=== PATIENT | male | born 1965 | race African-American/Black ===

== ENCOUNTER 2020-05-07 06:49 | Outpatient (REF) | payer OTHER, SELFPAY | END 2020-05-07 06:50 | disposition home or self-care (01) | LOC: HO.LAB 06:49 | PROVIDERS: Visit Provider Internal Medicine | DX: Z20.828 Contact with and (suspected) exposure to other viral communicable diseases (principal) | CPT/HCPCS: 87635 ==

== ENCOUNTER 2020-06-09 07:09 | Outpatient (REF) | payer OTHER, SELFPAY | END 2020-06-09 07:10 | disposition home or self-care (01) | LOC: HO.LAB 07:09 | PROVIDERS: Visit Provider Internal Medicine | DX: Z20.828 Contact with and (suspected) exposure to other viral communicable diseases (principal) | CPT/HCPCS: C9803; U0003 ==

== ENCOUNTER → 2021-01-10 08:19 | Outpatient (BNVA) | payer OTHER, SELFPAY | PROVIDERS: Visit Provider Internal Medicine | DX: S16.1XXA Strain of muscle, fascia and tendon at neck level, initial encounter (principal); W57.XXXA Bitten or stung by nonvenomous insect and other nonvenomous arthropods, initial encounter | CPT/HCPCS: 99202 ==

== ENCOUNTER → 2021-01-13 08:22 | Outpatient (BNVA) | payer OTHER, SELFPAY | PROVIDERS: Visit Provider Internal Medicine | DX: S16.1XXA Strain of muscle, fascia and tendon at neck level, initial encounter (principal); X58.XXXA Exposure to other specified factors, initial encounter; M47.812 Spondylosis without myelopathy or radiculopathy, cervical region | CPT/HCPCS: 72050; 99214 ==

== ENCOUNTER → 2021-01-27 07:56 | Outpatient (BNVA) | payer OTHER, SELFPAY | PROVIDERS: Visit Provider Internal Medicine | DX: S16.1XXD Strain of muscle, fascia and tendon at neck level, subsequent encounter (principal); X58.XXXD Exposure to other specified factors, subsequent encounter | CPT/HCPCS: 99213 ==

== ENCOUNTER → 2021-02-03 08:02 | Outpatient (BNVA) | payer OTHER, SELFPAY | PROVIDERS: Visit Provider Internal Medicine | DX: S16.1XXD Strain of muscle, fascia and tendon at neck level, subsequent encounter (principal); X58.XXXD Exposure to other specified factors, subsequent encounter; R20.0 Anesthesia of skin | CPT/HCPCS: 99213 ==

== ENCOUNTER 2021-02-16 08:30 | Outpatient (REF) | payer OTHER, SELFPAY ==
--- NOTE | ~2021-02-16 | XR_ITS ---
EXAMINATION: XR ORBITS CLINICAL INFORMATION: Rule out foreign body. History of metal to the orbits. COMPARISON: None TECHNIQUE: 3 view orbital series. FINDINGS: There is no fracture. No bone, joint or soft tissue abnormality is demonstrated. No radiopaque foreign body. XR/XR orbit min 4V IMPRESSION: No radiopaque foreign body identified about the orbits.
== END 2021-02-16 08:31 | disposition home or self-care (01) ==
LOC: HO.XRAY 08:30
PROVIDERS: Visit Provider Otolaryngology
DX: Z87.821 Personal history of retained foreign body fully removed (principal)
CPT/HCPCS: 70200

== ENCOUNTER 2021-02-18 07:00 | Outpatient (RCR) | payer OTHER, SELFPAY ==
--- NOTE | 2021-01-21 11:23 | MHC.PT.EP ---
[facility] [place] Office [place] Office [place] Office [address] Lloyd Gurrola [address] [phone] F: [phone] F: [phone] F: [phone] F: [phone] Physical Therapy Plan of Care Date of Evaluation: Date of Surgery: N/A Diagnosis: Cervical Strain Assessment: Pt is a 55 yo M who presents to PT s/p injuring the L side of his neck at work. He presents with current impairments in pain, ROM, strength, soft tissue restrictions, joint mobility, and headaches. His signs and symptoms may be consistent with strain of cervical musculature and cervicogenic headaches. He is limited functionally by looking up or down for prolonged periods, sleeping, rotation during driving, and ADLs. He is an excellent candidate for skilled PT services to address current impairments and facilitate return to pain-free PLOF. Frequency and Duration: The patient will be seen 3x/week, 3 weeks Short Term Goals: Pt will be I with HEP to promote self management of symptoms. 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 Treatment Plan: Modalities to reduce pain, spasms and effusion. Manual therapy to restore motion and function. Therapeutic exercise to improve strength and flexibility. Neuromuscular re-education for posture and balance. Therapeutic activities to return to functional activities of daily living. Electronically signed by: Page Worley, PT, DPT Please sign and return to therapist. Thank you for your referral.
--- NOTE | 2021-02-21 14:27 | MHC.PT.DC ---
[facility] [place] Office [place] Office [place] Office [address] Lloyd Gurrola [address] [phone] F: [phone] F: [phone] F: [phone] F: [phone] Physical Therapy Discharge Report Diagnosis: Cervical Strain Date of Surgery: N/A Date of Evaluation: 01/21/21 Date of Discharge: 02/21/21 Treatments to Date: 9 Cancellations to Date: 0 No Shows to Date: 0 Discharge Status: Recommend MD Follow-up Discharge Summary: Pt is being D/C from skilled PT services. He has had minimal improvements in symptoms throughout his course of PT. On 02/18/21 he reports he had an MRI. He is recommended to follow-up with his provider s/p MRI. Electronically signed by: Page Worley PT, DPT Please sign and return to therapist. Thank you for your referral.
== END 2021-02-21 14:29 | disposition home or self-care (01) ==
LOC: HO.PT 07:00
PROVIDERS: Visit Provider Internal Medicine
DX: S16.1XXD Strain of muscle, fascia and tendon at neck level, subsequent encounter (principal)
CPT/HCPCS: 97110; 97140; 97161

== ENCOUNTER 2021-02-18 08:08 | Outpatient (REF) | payer OTHER, SELFPAY ==
--- NOTE | ~2021-02-18 | MR_ITS ---
EXAMINATION: MR CERVICAL SPINE WITHOUT CONTRAST CLINICAL INFORMATION: Fall, neck pain, side numbness. COMPARISON: Plain films of the cervical spine 01/13/2021. TECHNIQUE: MRI of the cervical spine was obtained using routine sequences without contrast. FINDINGS: VERTEBRAL BODIES AND PARASPINAL SOFT TISSUES: There is mild reversal of the cervical lordosis. There is narrowing of intervertebral disc height at C5-C6 anteriorly, there is multilevel loss of intervertebral disc signal. There is invagination of disc into the adjacent endplates at C5-C6, and there are degenerative endplate contour changes with edematous endplate signal centrally and toward the left this level. There are no acute compression fractures. Overall, marrow signal is homogenous. The paravertebral structures and visualized upper lung manrique are unremarkable. CERVICOMEDULLARY JUNCTION AND VISUALIZED POSTERIOR FOSSA: The craniocervical and posterior fossa structures are normal. Accounting for artifact, spinal cord signal appears normal; there is minimal prominence of the central canal of the spinal cord with maximum caliber of 1 mm at the level of C3-C4. SPINAL LEVELS: C2-C3: There is mild left facet arthropathy. There is a small posterior disc protrusion but there is no spinal cord compression or central stenosis. There are uncovertebral osteophytes and there is mild left foraminal narrowing. C3-C4: There is mild bilateral facet arthropathy. There is a small soft disc protrusion posteriorly in the midline which distorts the ventral thecal sac but there is no spinal cord compression or central stenosis. There are uncovertebral osteophytes. There is mild left foraminal narrowing. C4-C5: The facet joints appear normal. There is a small broad-based posterior soft disc protrusion which effaces CSF ventral to the spinal cord. There is no spinal cord compression or central stenosis. The neural foramina are patent bilaterally. C5-C6: The facet joints appear normal. There is a broad-based posterior soft disc protrusion which is slightly more prominent to the left of midline with distortion of the ventral thecal sac. There is no spinal cord compression or central stenosis. There are small left-sided uncovertebral osteophytes and there is mild left foraminal narrowing. C6-C7: The facet joints appear normal. There is a broad-based posterior soft disc protrusion which is most prominent to the right of midline, without spinal cord compression or central stenosis. The neural foramina are patent bilaterally. C7-T1: The facet joints appear normal bilaterally. Posterior disc contour is normal. There is no spinal cord compression or central stenosis. The neural foramina are patent bilaterally. MR/MR cervical spine wo con IMPRESSION: 1. There are facet arthropathic changes at multiple levels, and there is mild left foraminal narrowing at C2-C3, C3-C4 and C5-C6. 2. There are small soft disc protrusions posteriorly at multiple levels, but there is no spinal cord compression or central stenosis.
== END 2021-02-18 08:09 | disposition home or self-care (01) ==
LOC: HO.MRI 08:08
PROVIDERS: Visit Provider Internal Medicine
DX: M54.2 Cervicalgia (principal)
CPT/HCPCS: 72141

== ENCOUNTER → 2021-02-25 08:03 | Outpatient (BNVA) | payer OTHER, SELFPAY | PROVIDERS: Visit Provider Internal Medicine | DX: M50.222 Other cervical disc displacement at C5-C6 level (principal) | CPT/HCPCS: 99213 ==

== ENCOUNTER → 2021-03-18 08:04 | Outpatient (BNVA) | payer OTHER, SELFPAY | PROVIDERS: Visit Provider Internal Medicine | DX: S16.1XXD Strain of muscle, fascia and tendon at neck level, subsequent encounter (principal); X58.XXXD Exposure to other specified factors, subsequent encounter; M50.30 Other cervical disc degeneration, unspecified cervical region | CPT/HCPCS: 99213 ==

== ENCOUNTER 2021-04-01 14:00 | Outpatient (RCR) | payer OTHER, SELFPAY ==
--- NOTE | 2021-03-07 14:34 | MHC.PT.EP ---
[facility] [place] Office [place] Office [place] Office [address] [facility] [address] Lloyd Gurrola [address] [phone] F: [phone] F: [phone] F: [phone] F: [phone] Physical Therapy Plan of Care Date of Evaluation: Date of Surgery: NA Diagnosis: neck pain Assessment: Pt IS 55 YO R HD M RE-REFERRED TO PT FROM AFTER MRI (1. There are facet arthropathic changes at multiple levels, and there is mild left foraminal narrowing at C2-C3, C3-C4 and C5-C6. 2. There are small soft disc protrusions posteriorly at multiple levels, but there is no spinal cord compression or central stenosis AND CONTINUED C/O NECK PAIN AFTER AN INJURY FROM 12/24 WHEN HE WAS UP ON A LADDER AND SHOOK HIS HEAD TO GET BEE OFF. Pt HAD PT WITHOUT SIGNIF RELIEF AND WAS REFERRED BACK TO MD. NOW PRESENTS WITH CONTINUED C/O NECK PAIN WITHOUT PARESTHESIA. HAS POOR POSTURE AND LIMITED CERV ROM. Pt HAD RX OF ST WORK, STRETCHING/STRENGTHENING WITHOUT SIGNIF RELIEF. DID NOT HAVE TRIAL OF MECHANICAL TRACTION OR US/TENS SO WILL ADD THESE TO THE PLAN WITH CONTINUED STRETCH/STRENGTHENING AND ST WORK. Pt IS WORKING NORMAL DUTY Frequency and Duration: The patient will be seen 2X/WK X 4 WEEKS Short Term Goals: 1. IMPROVED POSTURE AND POSTURE AWARENESS(LESS FWD HEAD AND ROUND SHLDERS) 2. LESS END RANGE PAIN WITH IMPROVED CERV ROM Compensator Goals: 1. DECREASED NECK PAIN AT LEAST 50% WITH ADLS 2. I HEP WITH DC EX PLAN 3. IMPROVED NPDI Treatment Plan: Modalities to reduce pain, spasms and effusion. Manual therapy to restore motion and function. Therapeutic exercise to improve strength and flexibility. Neuromuscular re-education for posture and balance. Therapeutic activities to return to functional activities of daily living. Electronically signed by: JEMAL CUNHA PT Please sign and return to therapist. Thank you for your referral.
--- NOTE | 2021-04-29 08:59 | MHC.PT.DC ---
[facility] [place] Office [place] Office [place] Office [address] [address] [phone] F: [phone] F: [phone] F: [phone] F: [phone] Physical Therapy Discharge Report Diagnosis: Neck pain Date of Surgery: NA Date of Evaluation: 03/07/21 Date of Discharge: Treatments to Date: 7 Cancellations to Date: No Shows to Date: Discharge Status: Recommend MD Follow-up Discharge Summary: PER LAST NOTE FROM DAYRON HOLLEY FLOOR REFINISHER ON 04/01/21: Pt. D/C to HEP today. Temp. relief only with PT interventions. Appt with [facility] is . Electronically signed by: JEMAL CUNHA PT Please sign and return to therapist. Thank you for your referral.
== END 2021-04-29 09:00 | disposition home or self-care (01) ==
LOC: HO.PT 14:00
PROVIDERS: Visit Provider Internal Medicine
DX: M54.2 Cervicalgia (principal)
CPT/HCPCS: 97012; 97110; 97140; 97161; 97535

== ENCOUNTER → 2021-04-15 08:06 | Outpatient (BNVA) | payer OTHER, SELFPAY | PROVIDERS: Visit Provider Internal Medicine | DX: S16.1XXD Strain of muscle, fascia and tendon at neck level, subsequent encounter (principal); X58.XXXD Exposure to other specified factors, subsequent encounter | CPT/HCPCS: 99213 ==

== ENCOUNTER → 2022-08-21 08:29 | Outpatient (BNVA) | payer OTHER, SELFPAY | PROVIDERS: Visit Provider Physician Assistant Medical | DX: S39.012A Strain of muscle, fascia and tendon of lower back, initial encounter (principal); X50.1XXA Overexertion from prolonged static or awkward postures, initial encounter | CPT/HCPCS: 99203; J1885 ==

== ENCOUNTER → 2022-08-24 08:44 | Outpatient (BNVA) | payer OTHER, SELFPAY | PROVIDERS: Visit Provider Physician Assistant Medical | DX: S39.012D Strain of muscle, fascia and tendon of lower back, subsequent encounter (principal); X50.1XXD Overexertion from prolonged static or awkward postures, subsequent encounter | CPT/HCPCS: 99213 ==

== ENCOUNTER → 2022-09-07 13:01 | Outpatient (BNVA) | payer OTHER, SELFPAY | PROVIDERS: Visit Provider Physician Assistant Medical | DX: S39.012D Strain of muscle, fascia and tendon of lower back, subsequent encounter (principal); X50.1XXD Overexertion from prolonged static or awkward postures, subsequent encounter | CPT/HCPCS: 99213 ==

== ENCOUNTER → 2022-09-21 11:11 | Outpatient (BNVA) | payer OTHER, SELFPAY | PROVIDERS: Visit Provider Physician Assistant Medical | DX: S39.012D Strain of muscle, fascia and tendon of lower back, subsequent encounter (principal); X50.3XXD Overexertion from repetitive movements, subsequent encounter | CPT/HCPCS: 99213 ==

== ENCOUNTER → 2022-10-06 10:59 | Outpatient (BNVA) | payer OTHER, SELFPAY | PROVIDERS: Visit Provider Physician Assistant Medical | DX: M54.50 Low back pain, unspecified (principal) | CPT/HCPCS: 72110; 99214 ==

== ENCOUNTER 2022-10-19 18:40 | Outpatient (REF) | payer OTHER, SELFPAY ==
--- NOTE | ~2022-10-19 | MR_ITS ---
MR LUMBAR SPINE WITHOUT CONTRAST CLINICAL INFORMATION: Left lumbar strain/pain. COMPARISON: Lumbar spine radiographs 10/06/2022. TECHNIQUE: MRI of the lumbar spine was obtained using routine sequences without contrast. FINDINGS: There are 5 nonrib-bearing lumbar-type vertebral bodies. There is grade 1 retrolisthesis of L4 on L5. There is bone marrow edema involving the severely degenerative left L2 and L3 facets that is most likely degenerative/inflammatory. There is no additional bone marrow edema. There are no acute fractures. Vertebral body heights overall maintained. There is disc desiccation at the L2-L3 and L4-L5 levels. Conus terminates at the L1-L2 level. Partially imaged simple left renal cysts for which no further imaging follow-up is warranted. L1-L2: Posterior disc contour is normal. No central canal stenosis and no foraminal stenosis. L2-L3: There is a left lateral disc protrusion that results in mild to moderate left-sided foraminal stenosis and probable mass effect on the extraforaminal left L2 nerve root. Background annular disc bulge as well as advanced left and mild right facet arthropathy. No central canal stenosis and no right foraminal stenosis. L3-L4: Small diffuse annular disc bulge and mild bilateral facet arthropathy. There is no central canal stenosis. There is mild foraminal encroachment bilaterally. L4-L5: There is a diffuse annular disc bulge and there is moderate bilateral facet arthropathy and ligamentum flavum thickening. Findings in concert result in mild central canal stenosis and mild to moderate bilateral foraminal encroachment. L5-S1: There is a diffuse annular disc bulge and there is moderate bilateral facet arthropathy. There is no central canal stenosis and there is no foraminal stenosis. MR/MR lumbar spine wo con IMPRESSION: * At L2-L3, there is a left lateral disc protrusion that results in mild to moderate left-sided foraminal stenosis and probable mass effect on the extraforaminal left L2 nerve root. There is bone marrow edema involving the severely degenerative left L2 and L3 facets that is most likely degenerative/inflammatory. Advanced left-sided facet arthropathy at L2-L3. * At L4-L5, multifactorial degenerative changes result in mild central canal stenosis and mild to moderate bilateral foraminal stenosis.
== END 2022-10-19 18:41 | disposition home or self-care (01) ==
LOC: HO.MRI 18:40
PROVIDERS: Visit Provider Internal Medicine
DX: M54.50 Low back pain, unspecified (principal)
CPT/HCPCS: 72148

== ENCOUNTER → 2022-10-23 07:57 | Outpatient (BNVA) | payer OTHER, SELFPAY | PROVIDERS: Visit Provider Physician Assistant Medical | DX: S39.012D Strain of muscle, fascia and tendon of lower back, subsequent encounter (principal); X50.1XXD Overexertion from prolonged static or awkward postures, subsequent encounter | CPT/HCPCS: 99213 ==

== ENCOUNTER → 2022-10-26 09:33 | Outpatient (BNVA) | payer OTHER, SELFPAY | PROVIDERS: Visit Provider Physician Assistant Medical | DX: S39.012D Strain of muscle, fascia and tendon of lower back, subsequent encounter (principal); X50.1XXD Overexertion from prolonged static or awkward postures, subsequent encounter; M51.26 Other intervertebral disc displacement, lumbar region; M48.061 Spinal stenosis, lumbar region without neurogenic claudication | CPT/HCPCS: 99213 ==

== ENCOUNTER → 2022-11-09 09:41 | Outpatient (BNVA) | payer OTHER, SELFPAY | PROVIDERS: Visit Provider Physician Assistant Medical | DX: S39.012D Strain of muscle, fascia and tendon of lower back, subsequent encounter (principal); X50.1XXD Overexertion from prolonged static or awkward postures, subsequent encounter; M51.06 Intervertebral disc disorders with myelopathy, lumbar region | CPT/HCPCS: 99213 ==

== ENCOUNTER → 2022-11-28 10:03 | Outpatient (BNVA) | payer OTHER, SELFPAY | PROVIDERS: PCP Internal Medicine; Visit Provider Nurse Practitioner Family | DX: M62.830 Muscle spasm of back (principal); M47.26 Other spondylosis with radiculopathy, lumbar region; M46.1 Sacroiliitis, not elsewhere classified; M51.36 Other intervertebral disc degeneration, lumbar region | CPT/HCPCS: 99202 ==

== ENCOUNTER → 2022-11-30 14:45 | Outpatient (BNVA) | payer OTHER, SELFPAY | PROVIDERS: PCP Internal Medicine; Visit Provider Physician Assistant Medical | DX: S39.012D Strain of muscle, fascia and tendon of lower back, subsequent encounter (principal); X50.1XXD Overexertion from prolonged static or awkward postures, subsequent encounter; M51.16 Intervertebral disc disorders with radiculopathy, lumbar region | CPT/HCPCS: 99213 ==

== ENCOUNTER 2022-12-21 10:52 | Day surgery (SDC) | payer OTHER, SELFPAY ==
[2022-12-14 19:53] VITALS: BMI 28.7
--- NOTE | 2022-12-20 10:55 | HO.ANESPROP2 ---
Documented by User: Chela Calvert NP 12/20/22 10:56 HPI - Anesthesia Eval Consult details Narrative: 57yo M for Interlaminar L2-L3 Epidural Steroid Injection PMFSH Active Problems Active Problems: All Active Problems (Updated 12/14/22 @ 18:31 by Lila Massey RN) Cervical strain, acute (Acute 12/24/20) Lumbar spondylosis (Acute) Muscle spasm of back (Acute) Lumbar radicular pain (Acute) Sacroiliitis (Acute) Lumbar degenerative disc disease (Acute) Past Medical History Medical History (Updated 12/14/22 @ 18:31 by Lila Massey RN) Back pain Hypertension Surgical History Surgical History (Updated 12/14/22 @ 18:44 by Lila Massey RN) S/P right rotator cuff repair Social History Social History Patient Tobacco Use Status: Never used Tobacco Use of substances other than those prescribed or required for medical reasons: No Are you DNR?: No Advance Directives: No Advance Directives Information Provided: Yes Advance Directives on File: No Recently lost weight without trying: No Nutrition Risks: No Nutritional Risk Meds Allergies Allergy/AdvReac Type Severity Reaction Status Date / Time No Known Allergies Allergy Verified 11/28/22 10:07 Home Medications Medication Instructions Recorded Confirmed Last Taken Type amlodipine 10 mg tablet 10 mg PO DAILY 11/28/22 12/14/22 Unknown History multivitamin 1 tab PO DAILY 11/28/22 12/14/22 Unknown History omega-3 fatty acids-fish oil 300 1 cap PO DAILY 11/28/22 12/14/22 Unknown History mg-500 mg capsule (Fish Oil) sildenafil 100 mg tablet 100 mg PO DAILY 11/28/22 12/14/22 Unknown History triamterene 37.5 1 cap PO DAILY 11/28/22 12/14/22 Unknown History mg-hydrochlorothiazide 25 mg capsule Exam Exam Date and Time: December 20, 2022 1055 Height,Weight and Vital Signs: Height 6 ft Weight 96.162 kg Assessment and Plan Assessment Anesthesia Assessment: Chart Reviewed Documented by User: Stephon Lopez MD 12/21/22 12:38 PMFSH Past Medical History Medical History (Updated 12/14/22 @ 18:31 by Lila Massey, VIOLA) Back pain Hypertension Family History Family history of problems with anesthesia: No Surgical History Surgical History (Updated 12/14/22 @ 18:44 by Lila Massey RN) S/P right rotator cuff repair History of Problems with Anesthesia: No Social History Social History Patient Tobacco Use Status: Never used Tobacco Use of substances other than those prescribed or required for medical reasons: No Are you DNR?: No Advance Directives: No Advance Directives Information Provided: Yes Advance Directives on File: No Recently lost weight without trying: No Nutrition Risks: No Nutritional Risk Meds Allergies Allergy/AdvReac Type Severity Reaction Status Date / Time No Known Allergies Allergy Verified 11/28/22 10:07 Home Medications Medication Instructions Recorded Confirmed Last Taken Type amlodipine 10 mg tablet 10 mg PO DAILY 11/28/22 12/14/22 Unknown History multivitamin 1 tab PO DAILY 11/28/22 12/14/22 Unknown History omega-3 fatty acids-fish oil 300 1 cap PO DAILY 11/28/22 12/14/22 Unknown History mg-500 mg capsule (Fish Oil) sildenafil 100 mg tablet 100 mg PO DAILY 11/28/22 12/14/22 Unknown History triamterene 37.5 1 cap PO DAILY 11/28/22 12/14/22 Unknown History mg-hydrochlorothiazide 25 mg capsule Exam Airway Mallampati Class: II TM Dist: >3cm Neck ROM: Full Loose/Missing/Broken Teeth: Yes Heart: ok Lungs: ok Assessment and Plan Assessment Anesthesia Assessment: Anesthesia Plan Discussed Final Anesthetic Review Family History of Problems with Anesthesia: No History of Problems with Anesthesia: No NPO: Yes ASA Class: II Final Preanesthetic Review: No Changes in Pt Med Stat, Meds/Allgs Chart Reviewed, Consent Obtained/Reviewed and Anes Risks/Benef Reviewed Patient Risk: Low Procedure Risk: Intermediate Anesthetic Plan Anesthetic Plan: MAC: and Agree w/ Assess. and Plan Disposition: Standard PACU
--- NOTE | ~2022-12-21 | FL_ITS ---
EXAMINATION: XR FLUOROSCOPY WITH IMAGES CLINICAL INFORMATION: Interlaminar L2-L3 epidural steroid injection COMPARISON: None available. TECHNIQUE: Fluoroscopy Supervised By: Dr. Joel Riggs. Fluoroscopy Time: 0.3 minutes. Cumulative Dose: 4.3 mGy. DAP: 0.07 Gycm2. Images: 2. FINDINGS: Frontal and lateral images demonstrate needle placement over the left interlaminar lumbar vertebral body. FL/FL guidance in OR IMPRESSION: Fluoroscopy guidance for pain management procedure.
--- NOTE | 2022-12-21 12:15 | MHC.SHP ---
Pre-Procedural Eval Section A Date of Service: 12/21/22 The patient is an INPATIENT: No Changes since office visit: Yes Patient answered all questions The History & Physical has been completed within 30 days and I have reviewed it.: No Section B Chief Complaint: Radiculopathy, lumbar region Details of Present Illness: as above Relevant Family History (Specify if Yes): No Relevant Social History: None Present Medications: see Short Stay Collaborative assessment Medical History: No relevant PMH History of Previous Operations: No relevant previous surgery Allergies: Allergies Allergy/AdvReac Type Severity Reaction Status Date / Time No Known Allergies Allergy Verified 11/28/22 10:07 Review of Systems Sugical H&P ROS: Negative: Constitution, Cardiovascular, Respiratory, Neurological, Psychiatric, Hem-Onc, Allergic/Immunologic, Gastrointestinal, Genitourinary, Musculoskeletal, Integumentary, Endocrine and Eyes/Ears/Nose/Throat Exam Surgical H&P Exam: Normal: HEENT, Normal: Heart, Normal: Lungs, Normal: Extremities, Normal: Abdomen, Normal: Skin and Normal: Neurological Plan Diagnosis/Plan: Unchanged I have reviewed the history and physical and performed a pertinent physical examination on my patient. No changes have occurred unless specified. Time Spent With Patient Time: Total time managing care of this patient today ____ minutes.
--- NOTE | 2022-12-21 12:24 | W.PM.OPN ---
Operative Note Operative Note Date of Service: 12/21/22 Narrative: L2-L3 epidural steroid injection. Jeet is very pleasant 57 years old gentleman who came today to the operating room to receive L2-L3 epidural steroid injection interlaminar. Informed consent was explained all risks and benefits were delineated to the patient. The patient was taking to the operating room and positioned prone Operating table with pillow under the abdomen. ASA monitors were applied and patient was moderately sedated. The lower back and mid back of the patient's were prepped with ChloraPrep and draped with sterile utility towels. C-arm was brought over the operating field and sq picture of L2 and L3 vertebra were demonstrated on the screen. Projection of the left lamina of L3 vertebra upper border to the skin was chosen as original target of the injection. Lidocaine 2% preservative-free was injected into the skin and skin wheal was raised. after that 20 gauge 10 cm Touhy needle was inserted through the skin wheal and advanced to were the left L3 lamina on the anterior posterior and lateral views. Loss of resistance to air was used to detect epidural space. When tip of the needle was detected in the epidural space injection of the contrast was performed delineating Epidurogram. After that injection of treatment solution of lidocaine 0.5% 3 cc mixed with Kenalog 40 mg was performed into the needle. The needle was withdrawn and sterile Band-Aid was applied. The patient tolerated Procedure well. he was taken to recovery room where he recovered uneventfully.
[2022-12-21] MEDS: Lactated Ringers 1,000 ML 100 ML IVCONT (12:30)
[2022-12-21 13:15] VITALS: BP 136/86; PULSE 67; RESP 16; TEMP 36.4; O2SAT 94
--- NOTE | 2022-12-21 13:29 | PM.OP ---
Brief Operative Note Date of Service: 12/21/22 Pre-op diagnosis: rediculopathy lumbar Post-op diagnosis: same Procedure: L2- L3 interlaminar epidural steroid injection. Surgeon: Joel Riggs MD Anesthesia: MAC Was an Welding Machine Operator Thermit used for this Procedure?: No Estimated blood loss (mL): 0 Pathology: none sent Condition: stable Disposition: PACU
[2022-12-21 13:30] VITALS: BP 143/82; PULSE 62; RESP 16; O2SAT 100
[2022-12-21 13:45] VITALS: BP 143/90; PULSE 72; RESP 16; TEMP 36.1; O2SAT 95
== END 2022-12-21 14:35 | disposition home or self-care (01) ==
PROVIDERS: PCP Internal Medicine; Visit Provider Anesthesiology
PROC: 3E0R33Z Introduction of Anti-inflammatory into Spinal Canal, Percutaneous Approach (ICD-10-PCS; CPT 62323; principal; 2022-12-21 12:20)
DX: M54.16 Radiculopathy, lumbar region (principal); G89.29 Other chronic pain; M47.816 Spondylosis without myelopathy or radiculopathy, lumbar region; M51.36 Other intervertebral disc degeneration, lumbar region; M54.50 Low back pain, unspecified; I10 Essential (primary) hypertension; M62.830 Muscle spasm of back; M46.1 Sacroiliitis, not elsewhere classified; Z79.899 Other long term (current) drug therapy
CPT/HCPCS: 62323; J2250; J3010; J3301

== ENCOUNTER → 2022-12-28 14:41 | Outpatient (BNVA) | payer OTHER, SELFPAY | PROVIDERS: PCP Internal Medicine; Visit Provider Physician Assistant Medical | DX: S39.012D Strain of muscle, fascia and tendon of lower back, subsequent encounter (principal); X50.1XXD Overexertion from prolonged static or awkward postures, subsequent encounter; M51.26 Other intervertebral disc displacement, lumbar region; M47.816 Spondylosis without myelopathy or radiculopathy, lumbar region | CPT/HCPCS: 99213 ==

== ENCOUNTER → 2023-01-04 14:32 | Outpatient (BNVA) | payer OTHER, SELFPAY | PROVIDERS: PCP Internal Medicine; Visit Provider Nurse Practitioner Family | DX: M47.26 Other spondylosis with radiculopathy, lumbar region (principal); M62.830 Muscle spasm of back; M46.1 Sacroiliitis, not elsewhere classified; M51.36 Other intervertebral disc degeneration, lumbar region | CPT/HCPCS: 99212 ==

== ENCOUNTER 2023-01-30 13:49 | Outpatient (AMB) | payer OTHER, SELFPAY ==
--- NOTE | 2023-01-30 13:53 | A.OFFVIS_ITS ---
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 Denies any recent trauma, injury or falls. He remains out of work due to significant pain. Back NELIDA injections last month provided him minimal and partial right leg relief. Today he presents with localized tenderness in the right buttock and right lower back with radiation into his right lateral hip and right lower leg laterally with cramping, numbness, and tingling. Denies significant pain with lumbar extension. Patient is interested to pursue neurosurgical evaluation and undergo right diagnostic sacroiliac joint injection. Denies any fever, bladder or bowel incontinence or saddle anesthesia. PRIOR: Patient presents today for follow up for back pain. He recently underwent Interlaminar L2-L3 NELIDA on 12/21/[address] Riggs. Patient reports his back pain after injection started to get better on right side and radicular right leg pain but on 12/28/22 he was bending down at home and felt pulling sensation in his lower back. Today he denies any radicular symptoms and rates his axial low back pain at 4/10. Patient reports pain has been getting better with activity modifications, NSAID and methocarbamol. Denies any bladder or bowel incontinence or saddle anesthesia. He does have multilevel facet arthropathy. We discussed diagnostic lumbar medial branch blocks for potential therapeutic injections, Sprint PNS trial or RFA treatments. PRIOR: Patient is a pleasant 57 years old male presents today for initial evaluation for low back pain. This is a work related injury, DOI 08/18/22 patient states occurred while he was working in [employer] for many hours, causing him bending and pulling low back injury. Patient was seen at [facility] [facility] on and completed 2.5 months of physical therapy at [facility] with 85% symptom improvement with PT, HEP and while not working. His back pain is axial and also radiates to right side of his lower back and right buttock, radiating down into anterior aspect right thigh and lateral hip down into the knee, but not below the knee. Patient denies any groin pain, numbness, tingling or leg pain. Denies any bladder or bowel incontinence or saddle anesthesia. Pain is worst in the mornings with intensity rated at 10/10 and least severe during the day with intensity at 4/10. Patient reports pain affects his daily activities, functioning, sleep, mood, social activities and quality of life. Lumbar spine imaging, including most recent MRI was reviewed with patient and is noted below. Location Chronic low back pain since 08/18/22 Duration Since 08/18/22 Characteristics of symptom or complaint Aching, stabbing, sharp Aggravating or associated factors Jogging, prolonged standing, sitting, or wa lking Relieving factors Cyclobenzaprine, Ibuprofen, ice/heat therapy, changing positions Treatment PT at [facility] for 10 weeks, 85% improvement [facility] Medical History Back pain Hypertension Surgical History S/P right rotator cuff repair Social History Patient Tobacco Use Status: Never used Tobacco Review of Systems Const All systems reviewed & are unremarkable except as noted in HPI and below Physical Exam Vital Signs: Last Vital Signs Pulse 67 01/30/23 14:02 BP 132/85 01/30/23 14:02 Pulse Ox 98 01/30/23 14:02 Oxygen Delivery Method Room Air 01/30/23 14:02 BMI result Body Mass Index 28.9 General: Appears afebrile. Alert and oriented. Mood and affect appropriate. Follows and participates in conversation appropriately. Respiratory effort is unlabored. No cough. Able to transition from sit to stand unassisted. Ambulates with bilaterally normal heel strike and toe off. Back/Spine/Pelvis Cervical Spine: cervical ROM normal, No Cervical spine tenderness and No step off deformity Thoracic/Lumbar Spine: thoracic and lumbar spine normal to inspection, No Thoracic/lumbar spine scar(s), Lasegue's sign positive on the right and localized, pain with thoraco-lumbar ROM, paraspinal muscle tenderness on the right greater than left, No thoracic spinal tenderness and lumbar spinal tenderness at L4 and at L5 Pelvis: buttock tenderness on the right and no sciatic notch tenderness Sacroiliac joints: on the right (+Jeanmarie's, Stinchfield, Pelvic compression and Gaenslen tests are positive) and bilaterally (Right>Left) tender to palpation Results Reviewed Results Reviewed: MR LUMBAR SPINE WITHOUT CONTRAST 10/19/22 CLINICAL INFORMATION: Left lumbar strain/pain. COMPARISON: Lumbar spine radiographs 10/06/2022. FINDINGS: There are 5 nonrib-bearing lumbar-type vertebral bodies. There is grade 1 retrolisthesis of L4 on L5. There is bone marrow edema involving the severely degenerative left L2 and L3 facets that is most likely degenerative/inflammatory. There is no additional bone marrow edema. There are no acute fractures. Vertebral body heights overall maintained. There is disc desiccation at the L2-L3 and L4-L5 levels. Conus terminates at the L1-L2 level. Partially imaged simple left renal cysts for which no further imaging follow-up is warranted. L1-L2: Posterior disc contour is normal. No central canal stenosis and no foraminal stenosis. L2-L3: There is a left lateral disc protrusion that results in mild to moderate left-sided foraminal stenosis and probable mass effect on the extraforaminal left L2 nerve root. Background annular disc bulge as well as advanced left and mild right facet arthropathy. No central canal stenosis and no right foraminal stenosis. L3-L4: Small diffuse annular disc bulge and mild bilateral facet arthropathy. There is no central canal stenosis. There is mild foraminal encroachment bilaterally. L4-L5: There is a diffuse annular disc bulge and there is moderate bilateral facet arthropathy and ligamentum flavum thickening. Findings in concert result in mild central canal stenosis and mild to moderate bilateral foraminal encroachment. L5-S1: There is a diffuse annular disc bulge and there is moderate bilateral facet arthropathy. There is no central canal stenosis and there is no foraminal stenosis. IMPRESSION: * At L2-L3, there is a left lateral disc protrusion that results in mild to moderate left-sided foraminal stenosis and probable mass effect on the extraforaminal left L2 nerve root. There is bone marrow edema involving the severely degenerative left L2 and L3 facets that is most likely degenerative/inflammatory. Advanced left-sided facet arthropathy at L2-L3. * At L4-L5, multifactorial degenerative changes result in mild central canal stenosis and mild to moderate bilateral foraminal stenosis. Assessment & Plan Assessment & Plan (1) Muscle spasm of back: Code(s): M62.830 - Muscle spasm of back (2) Lumbar spondylosis: Code(s): M47.816 - Spondylosis without myelopathy or radiculopathy, lumbar region (3) Lumbar radicular pain: Code(s): M54.16 - Radiculopathy, lumbar region (4) Sacroiliitis: Code(s): M46.1 - Sacroiliitis, not elsewhere classified (5) Lumbar degenerative disc disease: Code(s): M51.36 - Other intervertebral disc degeneration, lumbar region Plan 1. Neurosurgery referral for right sided radiculopathy with minimal to no pain relief with recent L2-L3 Interlaminar NELIDA. 2. Schedule Right Diagnostic SIJ injection with local and fluoroscopy for low back pain and SIJ pain. If significant pain relief, will consider therapeutic injections, stimulative or ablative procedures. 3. Scripts provided for acute right radicular and arthritic related pain in RLE. Side effects and precautions reviewed for Nabumetome and Medrol Odin. All questions and concerns have been answered and patient agreed with the plan. Follow up after injections and sooner if needed. Anticoagulation: Patient not on anticoagulant Justification for interventional therapy: ? Patient with average pain > 6/10 ? Patient has exhausted conservative therapy, NSAIDs, physical therapy ? Patient continuing home exercise program The risks, consequences, alternatives, and benefits of various treatment options were discussed with the patient in great detail, including conservative management, injections and procedures. Medications: New methylprednisolone (Medrol (Odin)) PO PER PKG DIR 21 ea 0RF Refilled nabumetone Take it with food and full glass of water. 750 mg PO BID 60 tabs 3RF pain M47.816 - Spondylosis without myelopathy or radiculopathy, lumbar region, M54.16 - Radiculopathy, lumbar region, M62.830 - Muscle spasm of back Coding Level of Care Code Est Pt Level 4 (69147) Diagnoses Muscle spasm of back M62.830 Lumbar spondylosis M47.816 Lumbar radicular pain M54.16 Sacroiliitis M46.1 Lumbar degenerative disc disease M51.36
[2023-01-30 14:02] VITALS: BP 132/85; PULSE 67; O2SAT 98; BMI 28.9
== END 2023-01-30 14:23 | disposition home or self-care (01) ==
PROVIDERS: PCP Internal Medicine; Visit Provider Nurse Practitioner Family
DX: M62.830 Muscle spasm of back (principal); M47.816 Spondylosis without myelopathy or radiculopathy, lumbar region; M54.16 Radiculopathy, lumbar region; M46.1 Sacroiliitis, not elsewhere classified; M51.36 Other intervertebral disc degeneration, lumbar region
CPT/HCPCS: 99214

== ENCOUNTER → 2023-01-30 13:49 | Outpatient (BNVA) | payer OTHER, SELFPAY | PROVIDERS: Visit Provider Nurse Practitioner Family | DX: M62.830 Muscle spasm of back (principal); M47.26 Other spondylosis with radiculopathy, lumbar region; M46.1 Sacroiliitis, not elsewhere classified; M51.36 Other intervertebral disc degeneration, lumbar region | CPT/HCPCS: 99212 ==

== ENCOUNTER → 2023-02-01 14:50 | Outpatient (BNVA) | payer OTHER, SELFPAY | PROVIDERS: PCP Internal Medicine; Visit Provider Physician Assistant Medical | DX: M47.816 Spondylosis without myelopathy or radiculopathy, lumbar region (principal); M51.26 Other intervertebral disc displacement, lumbar region | CPT/HCPCS: 99213 ==

== ENCOUNTER → 2023-02-21 12:12 | Outpatient (BNVA) | payer OTHER, SELFPAY | PROVIDERS: PCP Internal Medicine; Visit Provider Physician Assistant Medical | DX: S39.012D Strain of muscle, fascia and tendon of lower back, subsequent encounter (principal); X50.1XXD Overexertion from prolonged static or awkward postures, subsequent encounter; M47.816 Spondylosis without myelopathy or radiculopathy, lumbar region; M51.26 Other intervertebral disc displacement, lumbar region | CPT/HCPCS: 99213 ==

== ENCOUNTER → 2023-02-27 15:00 | Outpatient (BNVA) | payer OTHER, SELFPAY | PROVIDERS: PCP Internal Medicine; Visit Provider Physician Assistant Medical | DX: M47.816 Spondylosis without myelopathy or radiculopathy, lumbar region (principal); M51.16 Intervertebral disc disorders with radiculopathy, lumbar region | CPT/HCPCS: 99213 ==

== ENCOUNTER 2023-03-20 06:01 | Outpatient (REF) | payer OTHER, SELFPAY ==
--- NOTE | ~2023-03-20 | FL_ITS ---
EXAMINATION: XR FLUOROSCOPY WITH IMAGES CLINICAL INFORMATION: Sacroiliitis, not elsewhere classified. COMPARISON: None available. TECHNIQUE: Fluoroscopy Supervised By: Dr. Joel Riggs. Fluoroscopy Time: 0.2 minutes. Cumulative Dose: 4.12 mGy. DAP: 0.0716 Gycm2. Images: 1. FINDINGS: Image demonstrates contrast injection of the right sacroiliac joint. FL/FL guidance in treatment room IMPRESSION: Fluoroscopy guidance for right sacroiliac joint injection
== END 2023-03-20 06:02 | disposition home or self-care (01) ==
LOC: CF 06:01
PROVIDERS: Visit Provider Anesthesiology
DX: M46.1 Sacroiliitis, not elsewhere classified (principal); M62.830 Muscle spasm of back; M47.816 Spondylosis without myelopathy or radiculopathy, lumbar region; M51.36 Other intervertebral disc degeneration, lumbar region
CPT/HCPCS: 27096

== ENCOUNTER 2023-03-20 12:53 | Outpatient (AMB) | payer OTHER, SELFPAY ==
--- NOTE | 2023-03-20 13:06 | MHC.OFFVIS ---
Intake Vital Signs 03/20/23 13:07 03/20/23 13:40 Height 6 ft 6 ft Weight 213 lb 213 lb BMI 28.9 28.9 BP 110/82 104/72 Blood Pressure Location Lt brachial Lt brachial Position Sitting Sitting Respiration 16 16 Pulse 69 71 Pulse Source Pulse Oximeter Pulse Oximeter Pulse Oximetry (%) 97 95 Oxygen Delivery Method Room Air Room Air Comment pre-op post-op Intake Visit Reasons: R DX SIJ INJ/LOCAL Allergies No Known Allergies Allergy (Verified 03/20/23 13:06) PFSH Medical History Back pain Hypertension Surgical History S/P right rotator cuff repair Social History Patient Tobacco Use Status: Never used Tobacco Physical Exam Vital Signs: Last Vital Signs Pulse 71 03/20/23 13:40 Resp 16 03/20/23 13:40 BP 104/72 03/20/23 13:40 Pulse Ox 95 03/20/23 13:40 Oxygen Delivery Method Room Air 03/20/23 13:40 BMI result Body Mass Index 28.9 Assessment & Plan Assessment & Plan (1) Muscle spasm of back: Code(s): M62.830 - Muscle spasm of back (2) Lumbar spondylosis: Code(s): M47.816 - Spondylosis without myelopathy or radiculopathy, lumbar region (3) Lumbar radicular pain: Code(s): M54.16 - Radiculopathy, lumbar region (4) Sacroiliitis: Code(s): M46.1 - Sacroiliitis, not elsewhere classified Plan: Right diagnostic sacroiliac joint injection Informed consent was explained thoroughly to the patient. All questions about benefits and risks for the procedure were answered. Patient came to the operating room and was positioned prone on the operating table with the pillow under the pelvis. [employer] monitors were applied and patient was deeply sedated. Time out was performed delineating name and of the patient, allergies and the nature of the procedure. The lower back and buttocks of the patient were prepped with ChloraPrep prepped and draped with sterile utility towels. C-arm was brought over the operating field and sq picture of patient's pelvis was demonstrated on the screen. For the right joint tilting C-arm contralateral to the site of the joint the most posterior portion of the joints was superimposed with anterior silhouette of the joint. Skin was injected in the projection of the joint slightly medial to the location of the joint with 25 gauge 1/2 inch needle using local lidocaine 2% .After that 22 gauge 3 and 1/2 inch needle was driven to the right joint in tunnel vision fashion. When needle entered the joint capsule injection of the contrast was performed demonstrating intra-articular spread of the contrast. After that 4 cc. of ropivacaine 0.5% was injected into the joint. Upon completion of the injections the needle was removed Sterile dressing was applied. Upon completion of the injection patient was taken outside of the operating room to the recovery room where recovered uneventfully. (5) Lumbar degenerative disc disease: Code(s): M51.36 - Other intervertebral disc degeneration, lumbar region Plan 1. Neurosurgery referral for right sided radiculopathy with minimal to no pain relief with recent L2-L3 Interlaminar NELIDA. 2. Schedule Right Diagnostic SIJ injection with local and fluoroscopy for low back pain and SIJ pain. If significant pain relief, will consider therapeutic injections, stimulative or ablative procedures. 3. Scripts provided for acute right radicular and arthritic related pain in RLE. Side effects and precautions reviewed for Nabumetome and Medrol Odin. All questions and concerns have been answered and patient agreed with the plan. Follow up after injections and sooner if needed. Anticoagulation: Patient not on anticoagulant Justification for interventional therapy: ? Patient with average pain > 6/10 ? Patient has exhausted conservative therapy, NSAIDs, physical therapy ? Patient continuing home exercise program The risks, consequences, alternatives, and benefits of various treatment options were discussed with the patient in great detail, including conservative management, injections and procedures. Orders: Orders FL guidance in treatment room Today M46.1 - Sacroiliitis, not elsewhere classified Coding Level of Care Code Procedure Only Diagnoses Muscle spasm of back M62.830 Lumbar spondylosis M47.816 Lumbar radicular pain M54.16 Sacroiliitis M46.1 Lumbar degenerative disc disease M51.36
[2023-03-20 13:07] VITALS: BP 110/82; PULSE 69; RESP 16; O2SAT 97; BMI 28.9
[2023-03-20 13:40] VITALS: BP 104/72; PULSE 71; RESP 16; O2SAT 95; BMI 28.9
== END 2023-03-20 13:31 | disposition home or self-care (01) ==
PROVIDERS: PCP Internal Medicine; Visit Provider Anesthesiology
DX: M46.1 Sacroiliitis, not elsewhere classified (principal)
CPT/HCPCS: 27096

== ENCOUNTER 2023-03-22 13:26 | Outpatient (AMB) | payer OTHER, SELFPAY ==
--- NOTE | 2023-03-22 13:28 | A.OFFVIS_ITS ---
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 [facility] manager system is present during today's visit. Patient reports 80% pain relief for 6 hours after procedure and ongoing 60% pain relief. He currently rates his pain at 4/10. Patient reports injection was helpful for his general activities, functioning and mobility but did not alleviate all of his right sided back symptoms. He reports increase in back pain with radiation to the right side, right buttock and lateral hip with bending or prolonged standing. Patient reports he has upcoming Neurosurgical evaluation by Dr. Rios at [facility] on 04/03/23. Denies any recent cough, cold, infection, fever or other significant changes in medical history since last office visit. Patient denies any foot drop, bladder or bowel incontinence or saddle anesthesia. Past Procedures: 03/20/23: Right Diagnostic SIJ injection-80% pain relief for 6 hours PRIOR: Patient presents today with persistent low back pain that is worse with leaning forward, prolonged standing for over 25 min or walking less than 10 minutes. Denies any recent trauma, injury or falls. He remains out of work due to significant pain. Back NELIDA injections last month provided him minimal and partial right leg relief. Today he presents with localized tenderness in the right buttock and right lower back with radiation into his right lateral hip and right lower leg laterally with cramping, numbness, and tingling. Denies significant pain with lumbar extension. Patient is interested to pursue neurosurgical evaluation and undergo right diagnostic sacroiliac joint injection. Denies any fever, bladder or bowel incontinence or saddle anesthesia. PRIOR: Patient presents today for follow up for back pain. He recently underwent Interlaminar L2-L3 NELIDA on 12/21/[address] Riggs. Patient reports his back pain after injection started to get better on right side and radicular right leg pain but on 12/28/22 he was bending down at home and felt pulling sensation in his lower back. Today he denies any radicular symptoms and rates his axial low back pain at 4/10. Patient reports pain has been getting better with activity modifications, NSAID and methocarbamol. Denies any bladder or bowel incontinence or saddle anesthesia. He does have multilevel facet arthropathy. We discussed diagnostic lumbar medial branch blocks for potential therapeutic injections, Sprint PNS trial or RFA treatments. PRIOR: Patient is a pleasant 57 years old male presents today for initial evaluation f or low back pain. This is a work related injury, DOI 08/18/22 patient states occurred while he was working in [employer] for many hours, causing him bending and pulling low back injury. Patient was seen at [facility] [employer] and completed 2.5 months of physical therapy at [facility] with 85% symptom improvement with PT, HEP and while not working. His back pain is axial and also radiates to right side of his lower back and right buttock, radiating down into anterior aspect right thigh and lateral hip down into the knee, but not below the knee. Patient denies any groin pain, numbness, tingling or leg pain. Denies any bladder or bowel incontinence or saddle anesthesia. Pain is worst in the mornings with intensity rated at 10/10 and least severe during the day with intensity at 4/10. Patient reports pain affects his daily activities, functioning, sleep, mood, social activities and quality of life. Lumbar spine imaging, including most recent MRI was reviewed with patient and is noted below. Location Chronic low back pain since 08/18/22 Duration Since 08/18/22 Characteristics of symptom or complaint Aching, stabbing, sharp Aggravating or associated factors Jogging, prolonged standing, sitting, or walking Relieving factors Cyclobenzaprine, Ibuprofen, ice/heat therapy, changing positions Treatment PT at [facility] for 10 weeks, 85% improvement [facility] Medical History Back pain Hypertension Surgical History S/P right rotator cuff repair Social History Patient Tobacco Use Status: Never used Tobacco Review of Systems Const All systems reviewed & are unremarkable except as noted in HPI and below Physical Exam Vital Signs: BMI result Body Mass Index 28.5 General: Appears afebrile. Alert and oriented. Mood and affect appropriate. Follows and participates in conversation appropriately. Respiratory effort is unlabored. No cough. Able to transition from sit to stand unassisted. Back/Spine/Pelvis Cervical Spine: cervical ROM normal and No Cervical spine tenderness Thoracic/Lumbar Spine: Lasegue's sign positive on the right and localized, pain with thoraco-lumbar ROM, paraspinal muscle tenderness on the right greater than left, No thoracic spinal tenderness and lumbar spinal tenderness at L4 and at L5 Pelvis: buttock tenderness on the right and no sciatic notch tenderness Sacroiliac joints: on the right tender to palpation Results Reviewed Results Reviewed: MR LUMBAR SPINE WITHOUT CONTRAST 10/19/22 CLINICAL INFORMATION: Left lumbar strain/pain. COMPARISON: Lumbar spine radiographs 10/06/2022. FINDINGS: There are 5 nonrib-bearing lumbar-type vertebral bodies. There is grade 1 retrolisthesis of L4 on L5. There is bone marrow edema involving the severely degenerative left L2 and L3 facets that is most likely degenerative/inflammatory. There is no additional bone marrow edema. There are no acute fractures. Vertebral body heights overall maintained. There is disc desiccation at the L2-L3 and L4-L5 levels. Conus terminates at the L1-L2 level. Partially imaged simple left renal cysts for which no further imaging follow-up is warranted. L1-L2: Posterior disc contour is normal. No central canal stenosis and no foraminal stenosis. L2-L3: There is a left lateral disc protrusion that results in mild to moderate left-sided foraminal stenosis and probable mass effect on the extraforaminal left L2 nerve root. Background annular disc bulge as well as advanced left and mild right facet arthropathy. No central canal stenosis and no right foraminal stenosis. L3-L4: Small diffuse annular disc bulge and mild bilateral facet arthropathy. There is no central canal stenosis. There is mild foraminal encroachment bilaterally. L4-L5: There is a diffuse annular disc bulge and there is moderate bilateral facet arthropathy and ligamentum flavum thickening. Findings in concert result in mild central canal stenosis and mild to moderate bilateral foraminal encroachment. L5-S1: There is a diffuse annular disc bulge and there is moderate bilateral facet arthropathy. There is no central canal stenosis and there is no foraminal stenosis. IMPRESSION: * At L2-L3, there is a left lateral disc protrusion that results in mild to moderate left-sided foraminal stenosis and probable mass effect on the extraforaminal left L2 nerve root. There is bone marrow edema involving the severely degenerative left L2 and L3 facets that is most likely degenerative/inflammatory. Advanced left-sided facet arthropathy at L2-L3. * At L4-L5, multifactorial degenerative changes result in mild central canal stenosis and mild to moderate bilateral foraminal stenosis. Assessment & Plan Assessment & Plan (1) Lumbar spondylosis: Code(s): M47.816 - Spondylosis without myelopathy or radiculopathy, lumbar region (2) Lumbar radicular pain: Code(s): M54.16 - Radiculopathy, lumbar region (3) Sacroiliitis: Code(s): M46.1 - Sacroiliitis, not elsewhere classified (4) Lumbar degenerative disc disease: Code(s): M51.36 - Other intervertebral disc degeneration, lumbar region Plan Patient is status post Right Diagnostic SIJ injection on 03/20/23 with 80% pain relief for 6 hours and minimal pain rated at 4/10 for right side of the back radiating into right lateral hip and buttock. Patient is scheduled to undergo Neurosurgical evaluation on 04/03/23 with [facility]. We discussed short and longer term right SIJ pain, including therapeutic SIJ injection, peripheral nerve stimulation with Curonix and sacroiliac joint RFA procedures. Informational pamphlet provided to patient today. He will notify our office with his decision after neurosurgical evaluation. All questions and concerns have been answered and patient agreed with the plan. Follow as needed. Coding Level of Care Code Est Pt Level 3 (45812) Diagnoses Lumbar spondylosis M47.816 Lumbar radicular pain M54.16 Sacroiliitis M46.1 Lumbar degenerative disc disease M51.36
[2023-03-22 13:31] VITALS: BMI 28.5
== END 2023-03-22 13:50 | disposition home or self-care (01) ==
PROVIDERS: PCP Internal Medicine; Visit Provider Nurse Practitioner Family
DX: M47.816 Spondylosis without myelopathy or radiculopathy, lumbar region (principal); M54.16 Radiculopathy, lumbar region; M46.1 Sacroiliitis, not elsewhere classified; M51.36 Other intervertebral disc degeneration, lumbar region
CPT/HCPCS: 99213

== ENCOUNTER → 2023-03-22 13:26 | Outpatient (BNVA) | payer OTHER, SELFPAY | PROVIDERS: PCP Internal Medicine; Visit Provider Nurse Practitioner Family | DX: M47.26 Other spondylosis with radiculopathy, lumbar region (principal); M51.36 Other intervertebral disc degeneration, lumbar region; M46.1 Sacroiliitis, not elsewhere classified | CPT/HCPCS: 99212 ==

== ENCOUNTER → 2023-03-29 13:41 | Outpatient (BNVA) | payer OTHER, SELFPAY | PROVIDERS: PCP Internal Medicine; Visit Provider Physician Assistant Medical | DX: S39.012D Strain of muscle, fascia and tendon of lower back, subsequent encounter (principal); X50.1XXD Overexertion from prolonged static or awkward postures, subsequent encounter; M47.816 Spondylosis without myelopathy or radiculopathy, lumbar region; M51.26 Other intervertebral disc displacement, lumbar region | CPT/HCPCS: 99213 ==

== ENCOUNTER 2023-05-01 06:10 | Outpatient (REF) | payer OTHER, SELFPAY ==
--- NOTE | ~2023-05-01 | FL_ITS ---
EXAMINATION: XR FLUOROSCOPY WITH IMAGES CLINICAL INFORMATION: Sacroiliitis, not elsewhere classified. COMPARISON: None available. TECHNIQUE: Fluoroscopy Supervised By: Dr. Joel Riggs. Fluoroscopy Time: 0.1 minute. Cumulative Dose: 5.81 mGy. DAP: 0.101 Gycm2. Images: 1. FINDINGS: Image demonstrates needle placement and contrast injection of the right sacroiliac joint FL/FL guidance in treatment room IMPRESSION: Fluoroscopy guidance for pain management procedure
== END 2023-05-01 06:11 | disposition home or self-care (01) ==
LOC: CF 06:10
PROVIDERS: Visit Provider Anesthesiology
DX: M46.1 Sacroiliitis, not elsewhere classified (principal); M47.816 Spondylosis without myelopathy or radiculopathy, lumbar region; M54.16 Radiculopathy, lumbar region
CPT/HCPCS: 27096; J3301

== ENCOUNTER 2023-05-01 13:48 | Outpatient (AMB) | payer OTHER, SELFPAY ==
--- NOTE | 2023-05-01 13:55 | MHC.OFFVIS ---
Intake Vital Signs 05/01/23 14:59 05/01/23 15:08 Height 6 ft 6 ft Weight 210 lb 210 lb BMI 28.5 28.5 BP 110/64 118/72 Blood Pressure Location Lt brachial Rt brachial Position Sitting Sitting Respiration 16 16 Pulse 76 79 Pulse Source Pulse Oximeter Pulse Oximeter Pulse Oximetry (%) 96 96 Oxygen Delivery Method Room Air Room Air Comment pre-op post-op Intake Visit Reasons: RIGHT THERAPEUTIC SIJ INJECTION Allergies No Known Allergies Allergy (Verified 05/01/23 15:09) PFSH Medical History Back pain Hypertension Surgical History S/P right rotator cuff repair Social History Patient Tobacco Use Status: Never used Tobacco Physical Exam Vital Signs: Last Vital Signs Pulse 79 05/01/23 15:08 Resp 16 05/01/23 15:08 BP 118/72 05/01/23 15:08 Pulse Ox 96 05/01/23 15:08 Oxygen Delivery Method Room Air 05/01/23 15:08 BMI result Body Mass Index 28.5 Assessment & Plan Assessment & Plan (1) Lumbar spondylosis: Code(s): M47.816 - Spondylosis without myelopathy or radiculopathy, lumbar region (2) Lumbar radicular pain: Code(s): M54.16 - Radiculopathy, lumbar region (3) Sacroiliitis: Code(s): M46.1 - Sacroiliitis, not elsewhere classified Plan: Right therapeutic sacroiliac joint injection Informed consent was explained thoroughly to the patient. All questions about benefits and risks for the procedure were answered. Patient came to the operating room and was positioned prone on the operating table with the pillow under the pelvis. [employer] monitors were applied and patient was deeply sedated. Time out was performed delineating name and of the patient, allergies and the nature of the procedure. The lower back and buttocks of the patient were prepped with ChloraPrep prepped and draped with sterile utility towels. C-arm was brought over the operating field and sq picture of patient's pelvis was demonstrated on the screen. For the right joint tilting C-arm contralateral to the site of the joint the most posterior portion of the joints was superimposed with anterior silhouette of the joint. Skin was injected in the projection of the joint slightly medial to the location of the joint with 25 gauge 1/2 inch needle using local lidocaine 2% .After that 22 gauge 3 and 1/2 inch needle was driven to the right joint in tunnel vision fashion. When needle entered the joint capsule injection of the contrast was performed demonstrating intra-articular and minimally periarticular spread of the contrast. After that5 cc. of ropivacaine 0.5% mixed with kenalog 40 mg was injected into the joint. Upon completion of the injections the needle was removed Sterile dressing was applied. Upon completion of the injection patient was taken outside of the operating room to the recovery room where he recovered uneventfully. (4) Lumbar degenerative disc disease: Code(s): M51.36 - Other intervertebral disc degeneration, lumbar region Plan Patient is status post Right Diagnostic SIJ injection on 03/20/23 with 80% pain relief for 6 hours and minimal pain rated at 4/10 for right side of the back radiating into right lateral hip and buttock. Patient is scheduled to undergo Neurosurgical evaluation on 04/03/23 with [facility]. We discussed short and longer term right SIJ pain, including therapeutic SIJ injection, peripheral nerve stimulation with Curonix and sacroiliac joint RFA procedures. Informational pamphlet provided to patient today. He will notify our office with his decision after neurosurgical evaluation. All questions and concerns have been answered and patient agreed with the plan. Follow as needed. Orders: Orders FL guidance in treatment room Today M46.1 - Sacroiliitis, not elsewhere classified Coding Level of Care Code Procedure Only Diagnoses Lumbar spondylosis M47.816 Lumbar radicular pain M54.16 Sacroiliitis M46.1 Lumbar degenerative disc disease M51.36
[2023-05-01 14:59] VITALS: BP 110/64; PULSE 76; RESP 16; O2SAT 96; BMI 28.5
[2023-05-01 15:08] VITALS: BP 118/72; PULSE 79; RESP 16; O2SAT 96; BMI 28.5
== END 2023-05-01 14:51 | disposition home or self-care (01) ==
LOC: HO.PMCPRC 13:48
PROVIDERS: PCP Internal Medicine; Visit Provider Anesthesiology
DX: M47.816 Spondylosis without myelopathy or radiculopathy, lumbar region (principal); M54.16 Radiculopathy, lumbar region; M46.1 Sacroiliitis, not elsewhere classified; M51.36 Other intervertebral disc degeneration, lumbar region
CPT/HCPCS: 27096

== ENCOUNTER → 2023-05-03 09:19 | Outpatient (BNVA) | payer OTHER, SELFPAY | PROVIDERS: PCP Internal Medicine; Visit Provider Nurse Practitioner Family ==

== ENCOUNTER 2023-06-04 08:23 | Outpatient (AMB) | payer OTHER, SELFPAY ==
--- NOTE | 2023-06-04 08:36 | MHC.OFFVIS ---
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 Riggs. Lauren, Workers Comp nurse behavioral health case manager is present during today's visit. Patient reports ongoing 70% pain relief for right sided pain with increased functioning but not sleep. Pain is minimal at rest or sitting, rates it at 3/10 and increases to 6-8/10 at work with bending. He continues to endorse pain in his lower spine and bilateral sacral regions with radiation to his anterior thighs, worse on the left. Patient reports he was recently evaluated by Dr. Rios at [facility] and was discharged from their services and recommended to return to work on full duty. Patient reports increase in pain with recent return to full duty work one week ago. Reports increase back pain one minute after bending, twisting and prolonged standing or walking. His sleep is affected due to pain with changing his positions at night. Patient has pending lumbar and sacroiliac joint imaging to complete. His pain is consistent with radicular, SIJ and lumbar disc protrusion symptoms. NSAIDs provided him minimal and temporary pain relief. We will give consideration to repeating steroid injection to help ameliorate his symptoms in his lower back. At this time, patient has not reached maximum medical improvement. Patient is encouraged to avoid heavy lifting for the next 2-3 months. I have informed patient that our office is not certified to provide functional assessment evaluation. He is advised to seek an independent medical evaluation and functional assessment regarding the injury of August 18, 2022. Patient denies any weakness, numbness, tingling, bladder or bowel incontinence or saddle anesthesia. Past Procedures: 03/20/23: Right Diagnostic SIJ injection- 80% pain relief for 6 hours 12/21/22: Interlaminar L2-L3 NELIDA- 100% radicular symptoms relief but not lower back pain PRIOR: Patient is a pleasant 57 years old male presents today for initial evaluation for low back pain. This is a work related injury, DOI 08/18/22 patient states occurred while he was working in [employer] for many hours, causing him bending and pulling low back injury. Patient was seen at [facility] and completed 2.5 months of physical therapy at [facility] with 85% symptom improvement with PT, HEP and while not working. His back pain is axial and also radiates to right side of his lower back and right buttock, radiating down into anterior aspect right thigh and lateral hip down into the knee, but not below the knee. Patient denies any groin pain, numbness, tingling or leg pain. Denies any bladder or bowel incontinence or saddle anesthesia. Pain is worst in the mornings with intensity rated at 10/10 and least severe during the day with intensity at 4/10. Patient reports pain affects his daily activities, functioning, sleep, mood, social activities and quality of life. Lumbar spine imaging, including most recent MRI was reviewed with patient and is noted below. Location Chronic low back pain since 08/18/22 Duration Since 08/18/22 Characteristics of symptom or complaint Aching, stabbing, sharp Aggravating or associated factors Jogging, prolonged standing, sitting, or walking Relieving factors Cyclobenzaprine, Ibuprofen, ice/heat therapy, changing positions Treatment PT at [facility] for 10 weeks, 85% improvement PFSH Medical History Back pain Hypertension Surgical History S/P right rotator cuff repair Social History Patient Tobacco Use Status: Never used Tobacco Review of Systems Const All systems reviewed & are unremarkable except as noted in HPI and below Physical Exam Vital Signs: Last Vital Signs Pulse 88 06/04/23 08:37 BP 134/88 06/04/23 08:37 Pulse Ox 99 06/04/23 08:37 Oxygen Delivery Method Room Air 06/04/23 08:37 BMI result Body Mass Index 29.7 General: Appears afebrile. Alert and oriented. Mood and affect appropriate. Follows and participates in conversation appropriately. Respiratory effort is unlabored. No cough. Able to transition from sit to stand unassisted. Back/Spine/Pelvis Cervical Spine: cervical ROM normal and No Cervical spine tenderness Thoracic/Lumbar Spine: thoracic and lumbar spine normal to inspection, No Thoracic/lumbar spine scar(s), Lasegue's sign positive on the left and localized, pain with thoraco-lumbar ROM, paraspinal muscle tenderness on the right greater than left, thoraco-lumbar ROM limited, No thoracic spinal tenderness and lumbar spinal tenderness at L4 and at L5 Pelvis: buttock tenderness bilaterally and no sciatic notch tenderness Sacroiliac joints: bilaterally tender to palpation Results Reviewed Results Reviewed: MR LUMBAR SPINE WITHOUT CONTRAST 10/19/22 CLINICAL INFORMATION: Left lumbar strain/pain. COMPARISON: Lumbar spine radiographs 10/06/2022. FINDINGS: There are 5 nonrib-bearing lumbar-type vertebral bodies. There is grade 1 retrolisthesis of L4 on L5. There is bone marrow edema involving the severely degenerative left L2 and L3 facets that is most likely degenerative/inflammatory. There is no additional bone marrow edema. There are no acute fractures. Vertebral body heights overall maintained. There is disc desiccation at the L2-L3 and L4-L5 levels. Conus terminates at the L1-L2 level. Partially imaged simple left renal cysts for which no further imaging follow-up is warranted. L1-L2: Posterior disc contour is normal. No central canal stenosis and no foraminal stenosis. L2-L3: There is a left lateral disc protrusion that results in mild to moderate left-sided foraminal stenosis and probable mass effect on the extraforaminal left L2 nerve root. Background annular disc bulge as well as advanced left and mild right facet arthropathy. No central canal stenosis and no right foraminal stenosis. L3-L4: Small diffuse annular disc bulge and mild bilateral facet arthropathy. There is no central canal stenosis. There is mild foraminal encroachment bilaterally. L4-L5: There is a diffuse annular disc bulge and there is moderate bilateral facet arthropathy and ligamentum flavum thickening. Findings in concert result in mild central canal stenosis and mild to moderate bilateral foraminal encroachment. L5-S1: There is a diffuse annular disc bulge and there is moderate bilateral facet arthropathy. There is no central canal stenosis and there is no foraminal stenosis. IMPRESSION: * At L2-L3, there is a left lateral disc protrusion that results in mild to moderate left-sided foraminal stenosis and probable mass effect on the extraforaminal left L2 nerve root. There is bone marrow edema involving the severely degenerative left L2 and L3 facets that is most likely degenerative/inflammatory. Advanced left-sided facet arthropathy at L2-L3. * At L4-L5, multifactorial degenerative changes result in mild central canal stenosis and mild to moderate bilateral foraminal stenosis. Assessment & Plan Assessment & Plan (1) Lumbar spondylosis: Code(s): M47.816 - Spondylosis without myelopathy or radiculopathy, lumbar region (2) Sacroiliitis: Code(s): M46.1 - Sacroiliitis, not elsewhere classified (3) Lumbar radicular pain: Code(s): M54.16 - Radiculopathy, lumbar region (4) Lumbar degenerative disc disease: Code(s): M51.36 - Other intervertebral disc degeneration, lumbar region Plan Patient is status post recent right therapeutic SIJ injection with good pain relief for right side. Patient continues to endorse left sided low back pain with radicular, discogenic, and SIJ components. Patient was reminded to completed lower lumbar spine and SIJ xrays. If no significant changes, will proceed with left L2-L3 TFESI with sedation and fluoroscopy. Patient is advised to avoid heavy lifting and seek independent medical evaluation for Functional Capacity Assessment. All questions and concerns have been answered and patient agreed with the plan. Follow up as needed. Anticoagulation: Patient not on anticoagulant Justification for interventional therapy: ? Patient with average pain > 6/10 ? Patient has exhausted conservative therapy, NSAIDs, physical therapy The risks, consequences, alternatives, and benefits of various treatment options were discussed with the patient in great detail, including conservative management, injections and procedures. I have informed patient of hyperglycemic effects of steroids. Coding Level of Care Code Est Pt Level 4 (33725) Diagnoses Lumbar spondylosis M47.816 Sacroiliitis M46.1 Lumbar radicular pain M54.16 Lumbar degenerative disc disease M51.36
[2023-06-04 08:37] VITALS: BP 134/88; PULSE 88; O2SAT 99; BMI 29.7
== END 2023-06-04 08:55 | disposition home or self-care (01) ==
PROVIDERS: PCP Internal Medicine; Visit Provider Nurse Practitioner Family
DX: M46.1 Sacroiliitis, not elsewhere classified (principal); M47.896 Other spondylosis, lumbar region; M54.16 Radiculopathy, lumbar region; M51.36 Other intervertebral disc degeneration, lumbar region
CPT/HCPCS: 99214

== ENCOUNTER 2023-06-04 08:23 | Outpatient (REF) | payer OTHER, SELFPAY ==
--- NOTE | ~2023-06-04 | XR_ITS ---
EXAMINATION: XR LUMBOSACRAL SPINE CLINICAL INFORMATION: Lumbar spondylosis, without myelopathy or radiculopathy. COMPARISON: Radiographs dated 10/06/2022. TECHNIQUE: AP and lateral views of the lumbar spine and lateral view of the lumbosacral junction. FINDINGS: Vertebral body heights and alignment are normal. The lower thoracic and lumbar disc spaces are well-maintained. No acute fracture or spondylolisthesis is seen. The posterior elements are intact. There is multi-level mild to moderate thoracolumbar spondylosis, most pronounced at L4-L5. The paravertebral soft tissues are unremarkable. XR/XR sacroiliac joint min 3V IMPRESSION: 1. No acute fracture or spondylolisthesis is seen. 2. The lower thoracic and lumbar disc spaces are well-maintained. 3. There is multi-level mild to moderate thoracolumbar spondylosis, most pronounced at L4-L5. EXAMINATION: XR SACROILIAC JOINTS CLINICAL INFORMATION: Sacroiliitis. COMPARISON: None available. TECHNIQUE: AP and bilateral Judet views of the sacroiliac joints FINDINGS: Bones and soft tissues are normal. No fracture. Alignment is anatomic. Sacroiliac joint spaces are well-maintained without erosions or surrounding sclerosis. IMPRESSION: Normal sacroiliac joints.
--- NOTE | ~2023-06-04 | XR_ITS ---
EXAMINATION: XR LUMBOSACRAL SPINE CLINICAL INFORMATION: Lumbar spondylosis, without myelopathy or radiculopathy. COMPARISON: Radiographs dated 10/06/2022. TECHNIQUE: AP and lateral views of the lumbar spine and lateral view of the lumbosacral junction. FINDINGS: Vertebral body heights and alignment are normal. The lower thoracic and lumbar disc spaces are well-maintained. No acute fracture or spondylolisthesis is seen. The posterior elements are intact. There is multi-level mild to moderate thoracolumbar spondylosis, most pronounced at L4-L5. The paravertebral soft tissues are unremarkable. XR/XR lumbar spine 2-3V IMPRESSION: 1. No acute fracture or spondylolisthesis is seen. 2. The lower thoracic and lumbar disc spaces are well-maintained. 3. There is multi-level mild to moderate thoracolumbar spondylosis, most pronounced at L4-L5. EXAMINATION: XR SACROILIAC JOINTS CLINICAL INFORMATION: Sacroiliitis. COMPARISON: None available. TECHNIQUE: AP and bilateral Judet views of the sacroiliac joints FINDINGS: Bones and soft tissues are normal. No fracture. Alignment is anatomic. Sacroiliac joint spaces are well-maintained without erosions or surrounding sclerosis. IMPRESSION: Normal sacroiliac joints.
== END 2023-06-04 08:24 | disposition home or self-care (01) ==
LOC: HO.XRAY 08:23
PROVIDERS: PCP Internal Medicine; Visit Provider Nurse Practitioner Family
DX: M47.816 Spondylosis without myelopathy or radiculopathy, lumbar region (principal); M46.1 Sacroiliitis, not elsewhere classified; M54.16 Radiculopathy, lumbar region; M51.36 Other intervertebral disc degeneration, lumbar region
CPT/HCPCS: 72100; 72202; 99212

== ENCOUNTER 2023-07-20 12:53 | Day surgery (SDC) | payer OTHER, SELFPAY ==
--- NOTE | 2023-07-19 10:58 | HO.ANESPROP2 ---
HPI - Anesthesia Eval Consult details Narrative: 57yo M for L2-L3 Tranforaminal Epidural Steroid Injection PMFSH Active Problems Active Problems: All Active Problems (Updated 12/14/22 @ 18:31 by Lila Massey RN) Cervical strain, acute (Acute 12/24/20) Lumbar spondylosis (Acute) Muscle spasm of back (Acute) Lumbar radicular pain (Acute) Sacroiliitis (Acute) Lumbar degenerative disc disease (Acute) Past Medical History Medical History Back pain Hypertension Family History Family history of problems with anesthesia: No Surgical History Surgical History S/P right rotator cuff repair History of Problems with Anesthesia: No Social History Social History Patient Tobacco Use Status: Never used Tobacco Meds Allergies Allergy/AdvReac Type Severity Reaction Status Date / Time No Known Allergies Allergy Verified 06/04/23 08:38 Home Medications Medication Instructions Recorded Confirmed Last Taken Type amlodipine 10 mg tablet 10 mg PO DAILY 11/28/22 12/14/22 12/21/22 History multivitamin 1 tab PO DAILY 11/28/22 12/14/22 Unknown History omega-3 fatty acids-fish oil 300 1 cap PO DAILY 11/28/22 12/14/22 Unknown History mg-500 mg capsule (Fish Oil) sildenafil 100 mg tablet 100 mg PO DAILY 11/28/22 12/14/22 Unknown History triamterene 37.5 1 cap PO DAILY 11/28/22 12/14/22 12/21/22 History mg-hydrochlorothiazide 25 mg capsule Assessment and Plan Assessment Anesthesia Assessment: Chart Reviewed Final Anesthetic Review Family History of Problems with Anesthesia: No History of Problems with Anesthesia: No
--- NOTE | ~2023-07-20 | FL_ITS ---
EXAMINATION: XR FLUOROSCOPY WITH IMAGES CLINICAL INFORMATION: Lumbar injection. L2-L3 TFESI. COMPARISON: None available. TECHNIQUE: Fluoroscopy Supervised By: Dr. Joel Riggs. Fluoroscopy Time: 0.3 minutes. Cumulative Dose: 5.76 mGy. DAP: 1.57 Gycm2. Images: 3. FINDINGS: Images demonstrate needle placement and contrast injection adjacent to the left lateral lumbar spine at L2 and L3 FL/FL guidance in OR IMPRESSION: Fluoroscopic guidance for pain management procedure
[2023-07-20 13:24] VITALS: BP 133/83; PULSE 77; RESP 18; TEMP 36.7; O2SAT 98
--- NOTE | 2023-07-20 13:25 | PC.NURSE ---
IV inserted by hilda almodovar rn
--- NOTE | 2023-07-20 13:26 | P.CONAN_ITS ---
[facility] Active Problems Active Problems: All Active Problems (Updated 12/14/22 @ 18:31 by Lila Massey RN) Cervical strain, acute (Acute 12/24/20) Lumbar spondylosis (Acute) Muscle spasm of back (Acute) Lumbar radicular pain (Acute) Sacroiliitis (Acute) Lumbar degenerative disc disease (Acute) Past Medical History Medical History Back pain Hypertension Family History Family history of problems with anesthesia: No Surgical History Surgical History S/P right rotator cuff repair History of Problems with Anesthesia: No Social History Social History Patient Tobacco Use Status: Never used Tobacco Advance Directives: No Advance Directives Information Provided: Yes Meds Allergies Allergy/AdvReac Type Severity Reaction Status Date / Time No Known Allergies Allergy Verified 07/20/23 13:32 Active Medications: Current Medications Lactated Ringer's (Lr) 1,000 mls @ 100 mls/hr IVCONT .Q10H CARLO Ondansetron HCl (Ondansetron Hcl 4 Mg/2 Ml Vial) 4 mg IVPUSH ONCE PRN PRN Reason: Nausea and Vomiting Home Medications Medication Instructions Recorded Confirmed Last Taken Type amlodipine 10 mg tablet 10 mg PO DAILY 11/28/22 12/14/22 12/21/22 History multivitamin 1 tab PO DAILY 11/28/22 12/14/22 Unknown History omega-3 fatty acids-fish oil 300 1 cap PO DAILY 11/28/22 12/14/22 Unknown History mg-500 mg capsule (Fish Oil) sildenafil 100 mg tablet 100 mg PO DAILY 11/28/22 12/14/22 Unknown History triamterene 37.5 1 cap PO DAILY 11/28/22 12/14/22 12/21/22 History mg-hydrochlorothiazide 25 mg capsule Exam Height,Weight and Vital Signs: Last Vital Signs Temp 98.1 F 07/20/23 13:24 Pulse 77 07/20/23 13:24 Resp 18 07/20/23 13:24 BP 133/83 07/20/23 13:24 Pulse Ox 98 07/20/23 13:24 O2 Del Method Room Air 07/20/23 13:24 Airway Mallampati Class: III TM Dist: >3cm Partial: Upper and Lower Heart: rrr Lungs: clear Assessment and Plan Final Anesthetic Review Family History of Problems with Anesthesia: No History of Problems with Anesthesia: No NPO: Yes ASA Class: II Final Preanesthetic Review: No Changes in Pt Med Stat, Meds/Allgs Chart Reviewed, Consent Obtained/Reviewed and Anes Risks/Benef Reviewed Patient Risk: Intermediate Procedure Risk: Low Anesthetic Plan Anesthetic Plan: MAC: Disposition: Standard PACU
[2023-07-20] MEDS: Lactated Ringers 1,000 ML 100 ML IVCONT (13:27)
[2023-07-20 14:15] VITALS: BP 123/81; PULSE 80; RESP 16; TEMP 37.1; O2SAT 94
--- NOTE | 2023-07-20 14:20 | P.BOP_ITS ---
Brief Operative Note Date of Service: 07/20/23 Pre-op diagnosis: radiculopathy lumbar Post-op diagnosis: same Procedure: TFESI L2- L3 on the left Surgeon: Joel Riggs MD Anesthesia: MAC Was an Hairspring Cutter used for this Procedure?: No Estimated blood loss (mL): 0 Condition: stable Disposition: PACU
--- NOTE | 2023-07-20 14:23 | P.OP_ITS ---
Operative Note Operative Note Date of Service: 07/20/23 Narrative: Transforaminal epidural steroid injection L2- L3 on the left. THE PATIENT CAME TO THE OPERATING ROOM AFTER OBTAINING INFORMED CONSENT. THE RISKS OF THE PROCEDURE WERE DELINEATED THE RISK OF BLEEDING, INFECTION, PERIPHERAL NERVE DAMAGE , EPIDURAL HEMATOMA , EPIDURAL ABSCESS AND OTHER UNSPECIFIED RISKS. THE PATIENT WAS POSITIONED PRONE ON THE OPERATING TABLE . ASA MONITORS WERE APPLIED AND THE PATIENT WAS MINIMALLY SEDATED BUT HE REMAINED AWAKE AND RESPONSIVE THROUGHOUT THE CASE. TIME-OUT WAS OBTAINED DELINEATING CORRECT SIDE AND SITE OF THE PROCEDURE, PATIENT NAME AND DATE OF , NEED OF THE ANTIBIOTIC, RISK OF FIRE. LUMBAR AREA OF THE PATIENT WAS PREPPED WITH CHLORAPREP AND DRAPED WITH STERILE DRAPES, C-ARM WAS BROUGHT OVER THE OPERATING FIELD AND SQ PICTURE OF L2 VERTEBRA WAS DELINEATED ON THE SCREEN. C-ARM WAS TILTED 30 DEGREES TO THE RIGHT TO DEMONSTRATE THE MOST PROMINENT IMAGE OF THE L2 PEDICLE ON THE LEFT. 2 mm BELOW THE LOWEST POINT OF THE LEFT PEDICLE PROJECTION TO THE SKIN WAS INJECTED WITH LIDOCAINE 1% 2 mls . 22 GAUGE 5 IN SPINAL NEEDLE WAS INSERTED THROUGH THE SKIN WHEAL AND STARTED TO ADVANCE TO THE FORAMINA IN ANTERIOR POSTERIOR AND OBLIQUE VIEWS IN TUNNEL VISION FASHION. WHEN ON LATERAL VIEW THE NEEDLE ENTERED THE MOST POSTERIOR AND SUPERIOR PORTION OF THE FORAMINA AND ON THE AP VIEW NEEDLE ENTERED INTO THE PROJECTION OF THE SILHOUETTE OF THE SPINAL COLUMN INJECTION OF THE CONTRAST PERFORMED LIVE DELINEATING ANTERIOR EPIDURAL SPREAD OF THE CONTRAST, NO INTRAVASCULAR AND NO INTRATHECAL SPREAD OF THE CONTRAST WAS NOTED ON THE LIFE INJECTION . AFTER THAT TREATMENT SOLUTION CONTAINING 5 ML OF PRESERVATIVE-FREE LIDOCAINE 1% MIXED WITH KENALOG 40 MG WAS INJECTED INTO THE NEEDLE. UPON COMPLETION OF THE INJECTION THE NEEDLE WAS REMOVED AND STERILE DR ESSING WAS APPLIED. PATIENT TOLERATED PROCEDURE WELL HE WAS TAKEN OUTSIDE OF THE OPERATING ROOM TO PACU WHERE HE RECOVERED UNEVENTFULLY.
[2023-07-20 14:30] VITALS: BP 138/91; PULSE 78; RESP 16; TEMP 36.7; O2SAT 96
== END 2023-07-20 14:50 | disposition home or self-care (01) ==
PROVIDERS: PCP Internal Medicine; Visit Provider Anesthesiology
PROC: 3E0R33Z Introduction of Anti-inflammatory into Spinal Canal, Percutaneous Approach (ICD-10-PCS; CPT 64483; principal; 2023-07-20 14:50)
DX: M47.816 Spondylosis without myelopathy or radiculopathy, lumbar region (principal); M54.16 Radiculopathy, lumbar region; M51.36 Other intervertebral disc degeneration, lumbar region; G89.29 Other chronic pain; M46.1 Sacroiliitis, not elsewhere classified; M54.50 Low back pain, unspecified; R26.2 Difficulty in walking, not elsewhere classified; I10 Essential (primary) hypertension; Z79.899 Other long term (current) drug therapy
CPT/HCPCS: 64483; J3010; J3301; Q9965

== ENCOUNTER → 2023-07-20 12:53 | Outpatient (BNV) | payer OTHER, SELFPAY | PROVIDERS: PCP Internal Medicine; Visit Provider Anesthesiology | DX: M54.16 Radiculopathy, lumbar region (principal) | CPT/HCPCS: 64483 ==

== ENCOUNTER 2023-08-24 08:15 | Outpatient (AMB) | payer OTHER, SELFPAY ==
[2023-08-24 08:29] VITALS: BP 131/85; PULSE 79; O2SAT 99; BMI 28.7
--- NOTE | 2023-08-24 08:29 | MHC.OFFVIS ---
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 Riggs. Patient reports minimal pain relief with left L2-L3 TFESI since procedure with continued symptoms in lower back radiating into his right side today. He denies any radicular symptoms on the left today. Patient states most of his back pain has been across his axial lower back with extension into his right sacral region. Pain increases with sitting, bending, walking or prolonged standing. He has been back to work and notices increase in low back pain with bending, lifting, pulling, prolonged walking or standing. Patient requests referral to Dr. Choi at [facility] for second opinion. We will also address his axial low back pain with diagnostic lumbar medial branch blocks as next steps. Denies any recent cough, cold, infection, fever, any significant changes in her medical history, medications or recent hospitalizations. Past Procedures: 07/20/23: Left L2-L3 TFESI-minimal pain relief for low back pain, denies any radicular 03/20/23: Right Diagnostic SIJ injection- 80% pain relief for 6 hours 12/21/22: Interlaminar L2-L3 NELIDA- 100% radicular symptoms relief but not lower back pain PRIOR: Patient is a pleasant 57 years old male presents today for initial evaluation for low back pain. This is a work related injury, DOI 08/18/22 patient states occurred while he was working in [employer] for many hours, causing him bending and pulling low back injury. Patient was [place] [facility] [place] [facility] and completed 2.5 months of physical therapy at [facility] with 85% symptom improvement with PT, HEP and while not working. His back pain is axial and also radiates to right side of his lower back and right buttock, radiating down into anterior aspect right thigh and lateral hip down into the knee, but not below the knee. Patient denies any groin pain, numbness, tingling or leg pain. Denies any bladder or bowel incontinence or saddle anesthesia. Pain is worst in the mornings with intensity rated at 10/10 and least severe during the day with intensity at 4/10. Patient reports pain affects his daily activities, functioning, sleep, mood, social activities and quality of life. Lumbar spine imaging, including most recent MRI was reviewed with patient and is noted below. Location Chronic low back pain since 08/18/22 Duration Since 08/18/22 Characteristics of symptom or complaint Aching, stabbing, sharp Aggravating or associated factors Jogging, prolonged standing, sitting, or walking Relieving factors Cyclobenzaprine, Ibuprofen, ice/heat therapy, changing positions Treatment PT at [facility] for 10 weeks, 85% improvement [facility] Medical History Back pain Hypertension Surgical History S/P right rotator cuff repair Social History Patient Tobacco Use Status: Never used Tobacco Review of Systems Const All systems reviewed & are unremarkable except as noted in HPI and below Physical Exam Vital Signs: Last Vital Signs Pulse 79 08/24/23 08:29 BP 131/85 08/24/23 08:29 Pulse Ox 99 08/24/23 08:29 Oxygen Delivery Method Room Air 08/24/23 08:29 BMI result Body Mass Index 28.7 General: Appears afebrile. Alert and oriented. Mood and affect appropriate. Follows and participates in conversation appropriately. Respiratory effort is unlabored. No cough. Able to transition from sit to stand unassisted. Back/Spine/Pelvis Cervical Spine: cervical ROM normal and No Cervical spine tenderness Thoracic/Lumbar Spine: thoracic and lumbar spine normal to inspection, No Thoracic/lumbar spine scar(s), Lasegue's sign negative, straight leg raise negative bilaterally, pain with thoraco-lumbar ROM, paraspinal muscle tenderness on the right greater than left, thoraco-lumbar ROM limited, No thoracic spinal tenderness and lumbar spinal tenderness at L4 and at L5 Pelvis: buttock tenderness bilaterally (worse on the right) and no sciatic notch tenderness Sacroiliac joints: bilaterally (R>L) tender to palpation Results Reviewed Results Reviewed: MR LUMBAR SPINE WITHOUT CONTRAST 10/19/22 CLINICAL INFORMATION: Left lumbar strain/pain. COMPARISON: Lumbar spine radiographs 10/06/2022. FINDINGS: There are 5 nonrib-bearing lumbar-type vertebral bodies. There is grade 1 retrolisthesis of L4 on L5. There is bone marrow edema involving the severely degenerative left L2 and L3 facets that is most likely degenerative/inflammatory. There is no additional bone marrow edema. There are no acute fractures. Vertebral body heights overall maintained. There is disc desiccation at the L2-L3 and L4-L5 levels. Conus terminates at the L1-L2 level. Partially imaged simple left renal cysts for which no further imaging follow-up is warranted. L1-L2: Posterior disc contour is normal. No central canal stenosis and no foraminal stenosis. L2-L3: There is a left lateral disc protrusion that results in mild to moderate left-sided foraminal stenosis and probable mass effect on the extraforaminal left L2 nerve root. Background annular disc bulge as well as advanced left and mild right facet arthropathy. No central canal stenosis and no right foraminal stenosis. L3-L4: Small diffuse annular disc bulge and mild bilateral facet arthropathy. There is no central canal stenosis. There is mild foraminal encroachment bilaterally. L4-L5: There is a diffuse annular disc bulge and there is moderate bilateral facet arthropathy and ligamentum flavum thickening. Findings in concert result in mild central canal stenosis and mild to moderate bilateral foraminal encroachment. L5-S1: There is a diffuse annular disc bulge and there is moderate bilateral facet arthropathy. There is no central canal stenosis and there is no foraminal stenosis. IMPRESSION: * At L2-L3, there is a left lateral disc protrusion that results in mild to moderate left-sided foraminal stenosis and probable mass effect on the extraforaminal left L2 nerve root. There is bone marrow edema involving the severely degenerative left L2 and L3 facets that is most likely degenerative/inflammatory. Advanced left-sided facet arthropathy at L2-L3. * At L4-L5, multifactorial degenerative changes result in mild central canal stenosis and mild to moderate bilateral foraminal stenosis. Assessment & Plan Assessment & Plan (1) Lumbar radicular pain: Code(s): M54.16 - Radiculopathy, lumbar region (2) Protrusion of lumbar intervertebral disc: Code(s): M51.26 - Other intervertebral disc displacement, lumbar region (3) Discogenic lumbar pain: Code(s): M54.59 - Other low back pain (4) Lumbar spondylosis: Code(s): M47.816 - Spondylosis without myelopathy or radiculopathy, lumbar region (5) Sacroiliitis: Code(s): M46.1 - Sacroiliitis, not elsewhere classified (6) Lumbar degenerative disc disease: Code(s): M51.36 - Other intervertebral disc degeneration, lumbar region Plan Patient is status post recent left L2-L3 TFESI and reports minimal pain relief however there are no radicular symptoms today. He continues to endorse axial low back pain and right sided SIJ pain. He had right therapeutic SIJ injection with good pain relief last year and these effects have been fading out. Patient is interested to address his axial low back pain with Bilateral Diagnostic L3-L4 DR L5 MBB with local and fluoroscopy for potential stimulative or ablative procedures if positive response. For discogenic and intermittent radicular symptoms, patient request referral to Dr. Choi for second opinion. All questions and concerns have been answered and patient agreed with the plan. Follow up as needed. Anticoagulation: Patient not on anticoagulant Justification for interventional therapy: ? Patient with average pain > 6/10 ? Patient has exhausted conservative therapy, NSAIDs, physical therapy The risks, consequences, alternatives, and benefits of various treatment options were discussed with the patient in great detail, including conservative management, injections and procedures. Orders: Referrals Neurosurgery Referral M51.26 - Other intervertebral disc displacement, lumbar region, M54.16 - Radiculopathy, lumbar region, M54.59 - Other low back pain Coding Level of Care Code Est Pt Level 4 (05196) Diagnoses Lumbar radicular pain M54.16 Protrusion of lumbar intervertebral disc M51.26 Discogenic lumbar pain M54.59 Lumbar spondylosis M47.816 Sacroiliitis M46.1 Lumbar degenerative disc disease M51.36
== END 2023-08-24 08:44 | disposition home or self-care (01) ==
PROVIDERS: PCP Internal Medicine; Visit Provider Nurse Practitioner Family
DX: M54.16 Radiculopathy, lumbar region (principal); M51.26 Other intervertebral disc displacement, lumbar region; M47.816 Spondylosis without myelopathy or radiculopathy, lumbar region; M46.1 Sacroiliitis, not elsewhere classified; M51.36 Other intervertebral disc degeneration, lumbar region
CPT/HCPCS: 99214

== ENCOUNTER → 2023-08-24 08:15 | Outpatient (BNVA) | payer OTHER, SELFPAY | PROVIDERS: PCP Internal Medicine; Visit Provider Nurse Practitioner Family | DX: M47.26 Other spondylosis with radiculopathy, lumbar region (principal); M51.26 Other intervertebral disc displacement, lumbar region; M46.1 Sacroiliitis, not elsewhere classified; M51.36 Other intervertebral disc degeneration, lumbar region | CPT/HCPCS: 99212 ==

== ENCOUNTER 2023-09-25 06:14 | Outpatient (REF) | payer OTHER, SELFPAY ==
--- NOTE | ~2023-09-25 | FL_ITS ---
EXAMINATION: XR FLUOROSCOPY WITH IMAGES CLINICAL INFORMATION: Lumbar spondylosis without myelopathy or radiculopathy. COMPARISON: Intraoperative fluoroscopy dated 07/20/2023; lumbar spine radiographs dated 06/04/2023. TECHNIQUE: Fluoroscopy Supervised By: Dr. Joel Riggs. Fluoroscopy Time: 0.6 minutes. Cumulative Dose: 10.1 mGy. DAP: 2.77 Gycm2. Images: 6. FINDINGS: The submitted images show injection needles and injected contrast at the vicinity of the bilateral L3-L4 through L5-S1 neural foramina. FL/FL guidance in treatment room IMPRESSION: Intraoperative fluoroscopic guidance is provided during lumbar pain management procedure. Please see the patient's Operative Report for full procedural details.
== END 2023-09-25 06:15 | disposition home or self-care (01) ==
LOC: CF 06:14
PROVIDERS: Visit Provider Anesthesiology
DX: M47.816 Spondylosis without myelopathy or radiculopathy, lumbar region (principal); M54.16 Radiculopathy, lumbar region; M51.26 Other intervertebral disc displacement, lumbar region
CPT/HCPCS: 64493; 64494; J2795; Q9967

== ENCOUNTER 2023-09-25 11:09 | Outpatient (AMB) | payer OTHER, SELFPAY ==
[2023-09-25 11:17] VITALS: BP 118/60; PULSE 83; RESP 14; O2SAT 98; BMI 28.5
--- NOTE | 2023-09-25 11:17 | A.OFFVIS_ITS ---
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 Required: No Accompanied by: Self / Same As Patient Allergies No Known Allergies Allergy (Verified 09/25/23 11:18) PFSH Medical History Back pain Hypertension Surgical History S/P right rotator cuff repair Social History Patient Tobacco Use Status: Never used Tobacco Physical Exam Vital Signs: Last Vital Signs Pulse 71 09/25/23 11:47 Resp 14 09/25/23 11:47 BP 120/80 09/25/23 11:47 Pulse Ox 97 09/25/23 11:47 Oxygen Delivery Method Room Air 09/25/23 11:47 BMI result Body Mass Index 28.5 Assessment & Plan Assessment & Plan (1) Lumbar radicular pain: Code(s): M54.16 - Radiculopathy, lumbar region (2) Protrusion of lumbar intervertebral disc: Code(s): M51.26 - Other intervertebral disc displacement, lumbar region (3) Discogenic lumbar pain: Code(s): M54.59 - Other low back pain Plan: Diagnostic medial branch block L3,L4 dorsal ramus L5 bilateral.? ? ?Informed consent was explained to the patient. All questions were explained and? answered.? The patient was taken inside the operating room where she was positioned prone on the operating table. Time-out was performed delineating correct site, side, the nature of the procedure, patient's allergy, . All operating room staff was participating in OR time-out procedure. ? ? The lower back was prepped with ChloraPrep and draped with sterile towels.? C- arm was brought over the operating field and sq picture of L4-, L5 vertebra and S1 AREA were delineated on the screen.? Point of interest were delineated as confluence of superior articular process of L4 and L5 vertebra bilaterally with corresponding transverse processes as well as confluence of the sacral alae bilaterally with superior articular process of S1.? The projection of the point of interest to the skin were injected with the small amount of local anesthetic lidocaine 2% 1-1.5 cc.? After that 22 gauge 3.5 inch spinal needle was driven sequentially to the points of interest in tunnel vision fashion. After needles gently contacted the bone at the point of interests the needle was injected with small amount of the contrast.? The injection of the contrast did not demonstrate any intravascular or intrathecal spread of the contrast.? After that injection of the? ropivacaine 0.5%-1cc was performed at each needle location.??after that the needles were removed and Bandaids were applied. ? Upon completion of the injections? needle was? removed and sterile Band-Aids were applied.? The patient tolerated procedure very well. (4) Lumbar spondylosis: Code(s): M47.816 - Spondylosis without myelopathy or radiculopathy, lumbar region (5) Sacroiliitis: Code(s): M46.1 - Sacroiliitis, not elsewhere classified (6) Lumbar degenerative disc disease: Code(s): M51.36 - Other intervertebral disc degeneration, lumbar region Plan Patient is status post recent left L2-L3 TFESI and reports minimal pain relief however there are no radicular symptoms today. He continues to endorse axial low back pain and right sided SIJ pain. He had right therapeutic SIJ injection with good pain relief last year and these effects have been fading out. Patient is interested to address his axial low back pain with Bilateral Diagnostic L3-L4 DR L5 MBB with local and fluoroscopy for potential stimulative or ablative procedures if positive response. For discogenic and intermittent radicular symptoms, patient request referral to Dr. Choi for second opinion. All questions and concerns have been answered and patient agreed with the plan. Follow up as needed. Anticoagulation: Patient not on anticoagulant Justification for interventional therapy: ? Patient with average pain > 6/10 ? Patient has exhausted conservative therapy, NSAIDs, physical therapy The risks, consequences, alternatives, and benefits of various treatment options were discussed with the patient in great detail, including conservative management, injections and procedures. Orders: Orders FL guidance in treatment room Today M47.816 - Spondylosis without myelopathy or radiculopathy, lumbar region Coding Level of Care Code Procedure Only Diagnoses Lumbar radicular pain M54.16 Protrusion of lumbar intervertebral disc M51.26 Discogenic lumbar pain M54.59 Lumbar spondylosis M47.816 Sacroiliitis M46.1 Lumbar degenerative disc disease M51.36
[2023-09-25 11:47] VITALS: BP 120/80; PULSE 71; RESP 14; O2SAT 97; BMI 28.5
== END 2023-09-25 11:47 | disposition home or self-care (01) ==
LOC: HO.PMCPRC 11:10
PROVIDERS: PCP Internal Medicine; Visit Provider Anesthesiology
DX: M47.816 Spondylosis without myelopathy or radiculopathy, lumbar region (principal)
CPT/HCPCS: 64493; 64494

== ENCOUNTER 2023-10-02 10:30 | Outpatient (AMB) | payer OTHER, SELFPAY ==
--- NOTE | 2023-10-02 10:31 | A.OFFVIS_ITS ---
Intake Vital Signs 10/02/23 10:45 Height 6 ft Weight 210 lb BMI 28.5 BP 137/87 Blood Pressure Location Rt brachial Position Sitting Pulse 77 Pulse Source Pulse Oximeter Pulse Oximetry (%) 98 Oxygen Delivery Method Room Air Intake Visit Reasons: BILATERAL DIAGNOSTIC L3,L4, DRL5 MBB Intake Note: Pain today 10/30. History Tutor Required: No Allergies No Known Allergies Allergy (Verified 10/02/23 10:46) HPI HPI Comments 2 History of Present Illness Details Patient presents today to assess response to Diagnostic Bilateral L3-L4 DR L5 MBB with Dr. Riggs. Patient reports 90% pain relief for 12 hours since procedure with improvement in his functioning, mobility and sleep. He is interested to repeat diagnostic lumbar medial branch blocks to establish similar results for potential lumbar medial branch RFA procedure. Patient request diagnostic injections under sedation as recent injections were not well tolerated with local anesthesia per patient. Patient is not interested in peripheral nerve stimulation. Denies any recent cough, cold, infection, fever, any significant changes in her medical history, medications or recent hospitalizations. Past Procedures: 09/25/23: Diagnostic Bilateral L3-L4 DR L5 MBB-90% pain relief for 12 hours 07/20/23: Left L2-L3 TFESI-minimal pain relief for low back pain, denies any r adicular 03/20/23: Right Diagnostic SIJ injection - 80% pain relief for 6 hours 12/21/22: Interlaminar L2-L3 NELIDA- 100% r adicular symptoms relief but not lower back pain PRIOR: Patient is a pleasant 57 years old male presents today for initial evaluation for low back pain. This is a work related injury, DOI 08/18/22 patient states occurred while he was working in [employer] for many hours, causing him bending and pulling low back injury. Patient was seen at [facility] [place] [facility] and completed 2.5 months of physical therapy at [facility] with 85% symptom improvement with PT, HEP and while not working. His back pain is axial and also radiates to right side of his lower back and right buttock, radiating down into anterior aspect right thigh and lateral hip down into the knee, but not below the knee. Patient denies any groin pain, numbness, tingling or leg pain. Denies any bladder or bowel incontinence or saddle anesthesia. Pain is worst in the mornings with intensity rated at 10/10 and least severe during the day with intensity at 4/10. Patient reports pain affects his daily activities, functioning, sleep, mood, social activities and quality of life. Lumbar spine imaging, including most recent MRI was reviewed with patient and is noted below. Location Chronic low back pain since 08/18/22 Duration Since 08/18/22 Characteristics of symptom or complaint Aching, stabbing, sharp Aggravating or associated factors Jogging, prolonged standing, sitting, or walking Relieving factors Cyclobenzaprine, Ibuprofen, ice/heat therapy, changing positions Treatment PT at [facility] for 10 weeks, 85% improvement [facility] Medical History Back pain Hypertension Surgical History S/P right rotator cuff repair Social History Patient Tobacco Use Status: Never used Tobacco Review of Systems Const All systems reviewed & are unremarkable except as noted in HPI and below Physical Exam Vital Signs: Last Vital Signs Pulse 77 10/02/23 10:45 BP 137/87 10/02/23 10:45 Pulse Ox 98 10/02/23 10:45 Oxygen Delivery Method Room Air 10/02/23 10:45 BMI result Body Mass Index 28.5 General: Appears afebrile. Alert and oriented. Mood and affect appropriate. Follows and participates in conversation appropriately. Respiratory effort is unlabored. No cough. Able to transition from sit to stand unassisted. Back/Spine/Pelvis Cervical Spine: cervical ROM normal and No Cervical spine tenderness Thoracic/Lumbar Spine: thoracic and lumbar spine normal to inspection, No Thoracic/lumbar spine scar(s), Lasegue's sign negative, straight leg raise negative bilaterally, pain with thoraco-lumbar ROM, paraspinal muscle tenderness on the right greater than left, thoraco-lumbar ROM limited, No thoracic spinal tenderness and lumbar spinal tenderness at L4 and at L5 Sacroiliac joints: bilaterally (R>L) tender to palpation Results Reviewed Results Reviewed: MR LUMBAR SPINE WITHOUT CONTRAST 10/19/22 CLINICAL INFORMATION: Left lumbar strain/pain. COMPARISON: Lumbar spine radiographs 10/06/2022. FINDINGS: There are 5 nonrib-bearing lumbar-type vertebral bodies. There is grade 1 retrolisthesis of L4 on L5. There is bone marrow edema involving the severely degenerative left L2 and L3 facets that is most likely degenerative/inflammatory. There is no additional bone marrow edema. There are no acute fractures. Vertebral body heights overall maintained. There is disc desiccation at the L2-L3 and L4-L5 levels. Conus terminates at the L1-L2 level. Partially imaged simple left renal cysts for which no further imaging follow-up is warranted. L1-L2: Posterior disc contour is normal. No central canal stenosis and no foraminal stenosis. L2-L3: There is a left lateral disc protrusion that results in mild to moderate left-sided foraminal stenosis and probable mass effect on the extraforaminal left L2 nerve root. Background annular disc bulge as well as advanced left and mild right facet arthropathy. No central canal stenosis and no right foraminal stenosis. L3-L4: Small diffuse annular disc bulge and mild bilateral facet arthropathy. There is no central canal stenosis. There is mild foraminal encroachment bilaterally. L4-L5: There is a diffuse annular disc bulge and there is moderate bilateral facet arthropathy and ligamentum flavum thickening. Findings in concert result in mild central canal stenosis and mild to moderate bilateral foraminal encroachment. L5-S1: There is a diffuse annular disc bulge and there is moderate bilateral facet arthropathy. There is no central canal stenosis and there is no foraminal stenosis. IMPRESSION: * At L2-L3, there is a left lateral disc protrusion that results in mild to moderate left-sided foraminal stenosis and probable mass effect on the extraforaminal left L2 nerve root. There is bone marrow edema involving the severely degenerative left L2 and L3 facets that is most likely degenerative/inflammatory. Advanced left-sided facet arthropathy at L2-L3. * At L4-L5, multifactorial degenerative changes result in mild central canal stenosis and mild to moderate bilateral foraminal stenosis. Assessment & Plan Assessment & Plan (1) Protrusion of lumbar intervertebral disc: Code(s): M51.26 - Other intervertebral disc displacement, lumbar region (2) Lumbar spondylosis: Code(s): M47.816 - Spondylosis without myelopathy or radiculopathy, lumbar region (3) Sacroiliitis: Code(s): M46.1 - Sacroiliitis, not elsewhere classified (4) Lumbar degenerative disc disease: Code(s): M51.36 - Other intervertebral disc degeneration, lumbar region Plan Schedule repeat Bilateral Diagnostic L3-L4 DR L5 MBB with sedation and fluoroscopy for potential RFA procedure. We also reviewed [employer] peripheral nerve stimulation trial which patient declined as this is not practical to him at this time. All questions and concerns have been answered and patient agreed with the plan. Follow up after injections and sooner as needed. Anticoagulation: Patient not on anticoagulant Justification for interventional therapy: ? Patient with average pain > 6/10 ? Patient has exhausted conservative therapy, NSAIDs, physical therapy ? diagnostic lumbar medial branch blocks 90% pain relief for 12 hours The risks, consequences, alternatives, and benefits of various treatment options were discussed with the patient in great detail, including conservative management, injections and procedures. Coding Level of Care Code Est Pt Level 3 (12828) Diagnoses Protrusion of lumbar intervertebral disc M51.26 Lumbar spondylosis M47.816 Sacroiliitis M46.1 Lumbar degenerative disc disease M51.36
[2023-10-02 10:45] VITALS: BP 137/87; PULSE 77; O2SAT 98; BMI 28.5
== END 2023-10-02 11:20 | disposition home or self-care (01) ==
PROVIDERS: PCP Internal Medicine; Visit Provider Nurse Practitioner Family
DX: M51.26 Other intervertebral disc displacement, lumbar region (principal); M47.816 Spondylosis without myelopathy or radiculopathy, lumbar region; M46.1 Sacroiliitis, not elsewhere classified; M51.36 Other intervertebral disc degeneration, lumbar region
CPT/HCPCS: 99213

== ENCOUNTER → 2023-10-02 10:30 | Outpatient (BNVA) | payer OTHER, SELFPAY | PROVIDERS: PCP Internal Medicine; Visit Provider Nurse Practitioner Family | DX: M51.26 Other intervertebral disc displacement, lumbar region (principal); M47.816 Spondylosis without myelopathy or radiculopathy, lumbar region; M46.1 Sacroiliitis, not elsewhere classified; M51.36 Other intervertebral disc degeneration, lumbar region | CPT/HCPCS: 99212 ==

== ENCOUNTER 2023-11-06 06:03 | Outpatient (REF) | payer OTHER, SELFPAY ==
--- NOTE | ~2023-11-06 | FL_ITS ---
EXAMINATION: XR FLUOROSCOPY WITH IMAGES CLINICAL INFORMATION: Lumbar spondylosis, without myelopathy or radiculopathy. COMPARISON: Fluoroscopy dated 09/28/2023. TECHNIQUE: Fluoroscopy Supervised By: Dr. Joel Riggs. Fluoroscopy Time: 0.5 minutes. Cumulative Dose: 8.65 mGy. DAP: 2.35 Gycm2. Images: 6. FINDINGS: The submitted images show injection needles and injected contrast in the vicinity of the bilateral L3-L4 through L5-S1 neural foramina. FL/FL guidance in treatment room IMPRESSION: Intraoperative fluoroscopic guidance is provided during lumbar pain management procedure. Please see the patient's Operative Report for full procedural details.
== END 2023-11-06 06:04 | disposition home or self-care (01) ==
LOC: CF 06:03
PROVIDERS: Visit Provider Anesthesiology
DX: M47.816 Spondylosis without myelopathy or radiculopathy, lumbar region (principal); M51.36 Other intervertebral disc degeneration, lumbar region; M46.1 Sacroiliitis, not elsewhere classified
CPT/HCPCS: 64493; 64494; J2795; Q9967

== ENCOUNTER 2023-11-06 09:34 | Outpatient (AMB) | payer OTHER, SELFPAY ==
[2023-11-06 10:23] VITALS: BP 128/70; PULSE 68; RESP 18; O2SAT 98; BMI 28.5
--- NOTE | 2023-11-06 10:23 | A.OFFVIS_ITS ---
Intake Vital Signs 11/06/23 10:23 11/06/23 10:25 Height 6 ft Weight 210 lb BMI 28.5 BP 128/70 122/76 Blood Pressure Location Lt brachial Lt brachial Position Sitting Sitting Respiration 18 18 Pulse 68 74 Pulse Source Pulse Oximeter Pulse Oximeter Pulse Oximetry (%) 98 97 Oxygen Delivery Method Room Air Room Air Comment Pre-Op Post-Op Intake Visit Reasons: BILATERAL DIAGNOSTIC L3, L4, DRL5 MBB Allergies No Known Allergies Allergy (Verified 10/02/23 10:46) PFSH Medical History Back pain Hypertension Surgical History S/P right rotator cuff repair Social History Patient Tobacco Use Status: Never used Tobacco Physical Exam Vital Signs: Last Vital Signs Pulse 74 11/06/23 10:25 Resp 18 11/06/23 10:25 BP 122/76 11/06/23 10:25 Pulse Ox 97 11/06/23 10:25 Oxygen Delivery Method Room Air 11/06/23 10:25 BMI result Body Mass Index 28.5 Assessment & Plan Assessment & Plan (1) Protrusion of lumbar intervertebral disc: Code(s): M51.26 - Other intervertebral disc displacement, lumbar region (2) Lumbar spondylosis: Code(s): M47.816 - Spondylosis without myelopathy or radiculopathy, lumbar region Plan: Diagnostic medial branch block L3,L4 dorsal ramus L5 bilateral.? ? ?Informed consent was explained to the patient. All questions were explained and? answered.? The patient was taken inside the operating room where she was positioned prone on the operating table. Time-out was performed delineating correct site, side, the nature of the procedure, patient's allergy, . All operating room staff was participating in OR time-out procedure. ? ? The lower back was prepped with ChloraPrep and draped with sterile towels.? C- arm was brought over the operating field and sq picture of L4-, L5 vertebra and S1 AREA were delineated on the screen.? Point of interest were delineated as confluence of superior articular process of L4 and L5 vertebra bilaterally with corresponding transverse processes as well as confluence of the sacral alae bilaterally with superior articular process of S1.? The projection of the point of interest to the skin were injected with the small amount of local anesthetic lidocaine 2% 1-1.5 cc.? After that 22 gauge 3.5 inch spinal needle was driven sequentially to the points of interest in tunnel vision fashion. After needles gently contacted the bone at the point of interests the needle was injected with small amount of the contrast.? The injection of the contrast did not demonstrate any intravascular or intrathecal spread of the contrast.? After that injection of the? ropivacaine 0.5%-1cc was performed at each needle location.??after that the needles were removed and Bandaids were applied. ? Upon completion of the injections? needle was? removed and sterile Band-Aids were applied.? The patient tolerated procedure very well. (3) Sacroiliitis: Code(s): M46.1 - Sacroiliitis, not elsewhere classified (4) Lumbar degenerative disc disease: Code(s): M51.36 - Other intervertebral disc degeneration, lumbar region Plan Schedule repeat Bilateral Diagnostic L3-L4 DR L5 MBB with sedation and fluoroscopy for potential RFA procedure. We also reviewed Sprint peripheral nerve stimulation trial which patient declined as this is not practical to him at this time. All questions and concerns have been answered and patient agreed with the plan. Follow up after injections and sooner as needed. Anticoagulation: Patient not on anticoagulant Justification for interventional therapy: ? Patient with average pain > 6/10 ? Patient has exhausted conservative therapy, NSAIDs, physical therapy ? diagnostic lumbar medial branch blocks 90% pain relief for 12 hours The risks, consequences, alternatives, and benefits of various treatment options were discussed with the patient in great detail, including conservative management, injections and procedures. Orders: Orders FL guidance in treatment room Today M47.816 - Spondylosis without myelopathy or radiculopathy, lumbar region Coding Level of Care Code Procedure Only Diagnoses Protrusion of lumbar intervertebral disc M51.26 Lumbar spondylosis M47.816 Sacroiliitis M46.1 Lumbar degenerative disc disease M51.36
[2023-11-06 10:25] VITALS: BP 122/76; PULSE 74; RESP 18; O2SAT 97
== END 2023-11-06 10:26 | disposition home or self-care (01) ==
LOC: HO.PMCPRC 09:34
PROVIDERS: PCP Internal Medicine; Visit Provider Anesthesiology
DX: M51.26 Other intervertebral disc displacement, lumbar region (principal); M47.816 Spondylosis without myelopathy or radiculopathy, lumbar region; M46.1 Sacroiliitis, not elsewhere classified; M51.36 Other intervertebral disc degeneration, lumbar region
CPT/HCPCS: 64493; 64494

== ENCOUNTER 2023-11-13 10:01 | Outpatient (AMB) | payer OTHER, SELFPAY ==
--- NOTE | 2023-11-13 10:04 | MHC.OFFVIS ---
Vital Signs 11/13/23 10:12 Height 6 ft Weight 215 lb 8 oz BMI 29.2 BP 140/87 H Blood Pressure Location Rt brachial Position Sitting Pulse 77 Pulse Source Pulse Oximeter Pulse Oximetry (%) 97 Oxygen Delivery Method Room Air Intake Visit Reasons: BILATERAL DIAGNOSTIC L3,L4, DRL5 MBB Intake Note: Pain today 2.5 Tele Marketing Executive Required: No Accompanied by: case management coordinator Allergies No Known Allergies Allergy (Verified 11/13/23 10:11) Medication List - Last Reconciled 11/13/23 by PREETI New amlodipine 10 mg PO DAILY lidocaine 5% 1 patch topical DAILY 30 days multivitamin 1 tab PO DAILY naproxen 500 mg PO BID PRN 30 days omega-3 fatty acids-fish oil 300-500 mg (Fish Oil) 1 cap PO DAILY sildenafil 100 mg PO DAILY tamsulosin 0.4 mg PO DAILY triamterene-hydrochlorothiazid 37.5-25 mg 1 cap PO DAILY HPI Comments Details: Patient presents today to assess response to repeat Diagnostic Bilateral L3-L4 DR L5 MBB with Dr. Riggs on 11/06/23. Patient reports 100% pain relief for 6 hours since procedure with improvement in his functioning, mobility and sleep. Patient reports he returned to work after stopping at home for one hour and was able to work without significant pain. He is interested to with lumbar medial branch RFA procedure for a longer term pain relief. We also reviewed Sprint PNS trial. Patient is not interested in peripheral nerve stimulation at this time. Patient reports ongoing back pain causes fragmented sleep as he has to frequently reposition and adjust his sleeping position or elevate his legs. He takes magnesium OTC for muscle spasms, lidocaine patches and naproxen with partial relief. Denies any recent cough, cold, infection, fever, any significant changes in her medical history, medications or recent hospitalizations. Past Procedures: 11/06/23: Repeat Diagnostic Bilateral L3-L4 DR L5 MBB-100% pain relief for 6 hours 09/25/23: Diagnostic Bilateral L3-L4 DR L5 MBB-90% pain relief for 12 hours 07/20/23: Left L2-L3 TFESI-minimal pain relief for low back pain, denies any radicular 03/20/23: Right Diagnostic SIJ injection- 80% pain relief for 6 hours 12/21/22: Interlaminar L2-L3 NELIDA- 100% radicular symptoms relief but not lower back pain PRIOR: Patient is a pleasant 57 years old male presents today for initial evaluation for low back pain. This is a work related injury, DOI 08/18/22 patient states occurred while he was working in [employer] for many hours, causing him bending and pulling low back injury. Patient was seen at [facility] and completed 2.5 months of physical therapy at [facility] with 85% symptom improvement with PT, HEP and while not working. His back pain is axial and also radiates to right side of his lower back and right buttock, radiating down into anterior aspect right thigh and lateral hip down into the knee, but not below the knee. Patient denies any groin pain, numbness, tingling or leg pain. Denies any bladder or bowel incontinence or saddle anesthesia. Pain is worst in the mornings with intensity rated at 10/10 and least severe during the day with intensity at 4/10. Patient reports pain affects his daily activities, functioning, sleep, mood, social activities and quality of life. Lumbar spine imaging, including most recent MRI was reviewed with patient and is noted below. Location Chronic low back pain since 08/18/22 Duration Since 08/18/22 Characteristics of symptom or complaint Aching, stabbing, sharp Aggravating or associated factors Jogging, prolonged standing, sitting, or walking Relieving factors Cyclobenzaprine, Ibuprofen, ice/heat therapy, changing positions Treatment PT at [facility] for 10 weeks, 85% improvement PFSH Medical History Back pain Hypertension Surgical History S/P right rotator cuff repair Social History Patient Tobacco Use Status: Never used Tobacco Review of Systems Const All systems reviewed & are unremarkable except as noted in HPI and below Physical Exam Vital Signs: Last Vital Signs Pulse 77 11/13/23 10:12 BP 140/87 H 11/13/23 10:12 Pulse Ox 97 11/13/23 10:12 Oxygen Delivery Method Room Air 11/13/23 10:12 BMI result Body Mass Index 29.2 General: Appears afebrile. Alert and oriented. Mood and affect appropriate. Follows and participates in conversation appropriately. Respiratory effort is unlabored. No cough. Able to transition from sit to stand unassisted. Back/Spine/Pelvis Cervical Spine: cervical ROM normal and No Cervical spine tenderness Thoracic/Lumbar Spine: thoracic and lumbar spine normal to inspection, No Thoracic/lumbar spine scar(s), Lasegue's sign negative, straight leg raise negative bilaterally, pain with thoraco-lumbar ROM, paraspinal muscle tenderness on the right greater than left, No thoracic spinal tenderness and lumbar spinal tenderness at L3, at L4 and at L5 Pelvis: no buttock tenderness Sacroiliac joints: bilaterally (R>L) tender to palpation Results Reviewed Results Reviewed: MR LUMBAR SPINE WITHOUT CONTRAST 10/19/22 CLINICAL INFORMATION: Left lumbar strain/pain. COMPARISON: Lumbar spine radiographs 10/06/2022. FINDINGS: There are 5 nonrib-bearing lumbar-type vertebral bodies. There is grade 1 retrolisthesis of L4 on L5. There is bone marrow edema involving the severely degenerative left L2 and L3 facets that is most likely degenerative/inflammatory. There is no additional bone marrow edema. There are no acute fractures. Vertebral body heights overall maintained. There is disc desiccation at the L2-L3 and L4-L5 levels. Conus terminates at the L1-L2 level. Partially imaged simple left renal cysts for which no further imaging follow-up is warranted. L1-L2: Posterior disc contour is normal. No central canal stenosis and no foraminal stenosis. L2-L3: There is a left lateral disc protrusion that results in mild to moderate left-sided foraminal stenosis and probable mass effect on the extraforaminal left L2 nerve root. Background annular disc bulge as well as advanced left and mild right facet arthropathy. No central canal stenosis and no right foraminal stenosis. L3-L4: Small diffuse annular disc bulge and mild bilateral facet arthropathy. There is no central canal stenosis. There is mild foraminal encroachment bilaterally. L4-L5: There is a diffuse annular disc bulge and there is moderate bilateral facet arthropathy and ligamentum flavum thickening. Findings in concert result in mild central canal stenosis and mild to moderate bilateral foraminal encroachment. L5-S1: There is a diffuse annular disc bulge and there is moderate bilateral facet arthropathy. There is no central canal stenosis and there is no foraminal stenosis. IMPRESSION: * At L2-L3, there is a left lateral disc protrusion that results in mild to moderate left-sided foraminal stenosis and probable mass effect on the extraforaminal left L2 nerve root. There is bone marrow edema involving the severely degenerative left L2 and L3 facets that is most likely degenerative/inflammatory. Advanced left-sided facet arthropathy at L2-L3. * At L4-L5, multifactorial degenerative changes result in mild central canal stenosis and mild to moderate bilateral foraminal stenosis. Assessment & Plan Assessment & Plan (1) Lumbar spondylosis: Code(s): M47.816 - Spondylosis without myelopathy or radiculopathy, lumbar region Category: Medical (2) Sacroiliitis: Code(s): M46.1 - Sacroiliitis, not elsewhere classified Category: Medical (3) Lumbar degenerative disc disease: Code(s): M51.36 - Other intervertebral disc degeneration, lumbar region Category: Medical (4) Muscle spasm of back: Code(s): M62.830 - Muscle spasm of back Category: Medical Plan Patient is status post repeat diagnostic lumbar medial branch blocks with excellent results, providing him complete pain relief for 6 hours, with improved functioning, ROM and mobility. He would like to proceed with lumbar medial branch RFA as next steps for a longer term pain relief. Schedule Bilateral L3-L4 DR L5 Medial Branch RFA with local, oral Ativan and fluoroscopy. We also reviewed Sprint peripheral nerve stimulation trial which patient declined as this is not practical to him at this time. All questions and concerns have been answered and patient agreed with the plan. Follow up after RFA and sooner as needed. Anticoagulation: Patient not on anticoagulant Justification for interventional therapy: ? Patient with average pain > 6/10 ? Patient has exhausted conservative therapy, NSAIDs, physical therapy ? Diagnostic lumbar medial branch blocks #1 90% pain relief for 12 hours, #2 100% pain relief for 6 hours The risks, consequences, alternatives, and benefits of various treatment options were discussed with the patient in great detail, including conservative management, injections and procedures. Coding Level of Care Code Est Pt Level 4 (69418) Diagnoses Lumbar spondylosis M47.816 Sacroiliitis M46.1 Lumbar degenerative disc disease M51.36 Muscle spasm of back M62.830
[2023-11-13 10:12] VITALS: BP 140/87; PULSE 77; O2SAT 97; BMI 29.2
== END 2023-11-13 10:51 | disposition home or self-care (01) ==
PROVIDERS: PCP Internal Medicine; Visit Provider Nurse Practitioner Family
DX: M47.816 Spondylosis without myelopathy or radiculopathy, lumbar region (principal); M46.1 Sacroiliitis, not elsewhere classified; M51.36 Other intervertebral disc degeneration, lumbar region; M62.830 Muscle spasm of back
CPT/HCPCS: 99214

== ENCOUNTER → 2023-11-13 10:01 | Outpatient (BNVA) | payer OTHER, SELFPAY | PROVIDERS: PCP Internal Medicine; Visit Provider Nurse Practitioner Family | DX: M47.816 Spondylosis without myelopathy or radiculopathy, lumbar region (principal); M46.1 Sacroiliitis, not elsewhere classified; M51.36 Other intervertebral disc degeneration, lumbar region; M62.830 Muscle spasm of back; Z98.890 Other specified postprocedural states | CPT/HCPCS: 99212 ==

== ENCOUNTER 2024-01-01 06:05 | Outpatient (REF) | payer OTHER, SELFPAY ==
--- NOTE | ~2024-01-01 | FL_ITS ---
EXAMINATION: XR FLUOROSCOPY WITH IMAGES CLINICAL INFORMATION: Lumbar spondylosis. COMPARISON: None available. TECHNIQUE: Fluoroscopy Supervised By: Dr. Joel Riggs. Fluoroscopy Time: 1.4 minutes. Cumulative Dose: 18.3 mGy. DAP: 0.316 Gycm2. Images: 6. FINDINGS: Intraoperative fluoroscopy and spot films were performed during a procedure in the OR. Transforaminal needles are seen at the L4, L5 and S1 levels bilaterally. Contrast was injected and could be seen around the needle tips in likely the epidural space. Please see Dr. Joel Riggs's report for complete details. FL/FL guidance in treatment room IMPRESSION: Intraoperative fluoroscopy and spot films were obtained. Please see Dr. Joel Riggs's report for complete details.
== END 2024-01-01 06:06 | disposition home or self-care (01) ==
LOC: CF 06:05
PROVIDERS: Visit Provider Anesthesiology
DX: M47.816 Spondylosis without myelopathy or radiculopathy, lumbar region (principal); M46.1 Sacroiliitis, not elsewhere classified; M51.36 Other intervertebral disc degeneration, lumbar region; M62.830 Muscle spasm of back
CPT/HCPCS: 64635; 64636; J2795; J3301

== ENCOUNTER 2024-01-01 07:25 | Outpatient (AMB) | payer OTHER, SELFPAY ==
[2024-01-01 07:36] VITALS: BP 138/82; PULSE 72; RESP 18; O2SAT 97; BMI 29.2
--- NOTE | 2024-01-01 07:36 | MHC.OFFVIS ---
Vital Signs 01/01/24 07:36 01/01/24 08:58 Height 6 ft Weight 215 lb BMI 29.2 BP 138/82 132/76 Blood Pressure Location Lt brachial Lt brachial Position Sitting Sitting Respiration 18 18 Pulse 72 76 Pulse Source Pulse Oximeter Pulse Oximeter Pulse Oximetry (%) 97 98 Oxygen Delivery Method Room Air Room Air Comment Pre-Op Post-Op Intake Visit Reasons: BILATERAL L3, L4, L5 MB RFA (ATIVAN) Allergies No Known Allergies Allergy (Verified 11/13/23 10:11) HPI Comments Details: Patient presents today to assess response to repeat Diagnostic Bilateral L3-L4 DR L5 MBB with Dr. Riggs on 11/06/23. Patient reports 100% pain relief for 6 hours since procedure with improvement in his functioning, mobility and sleep. Patient reports he returned to work after stopping at home for one hour and was able to work without significant pain. He is interested to with lumbar medial branch RFA procedure for a longer term pain relief. We also reviewed Sprint PNS trial. Patient is not interested in peripheral nerve stimulation at this time. Patient reports ongoing back pain causes fragmented sleep as he has to frequently reposition and adjust his sleeping position or elevate his legs. He takes magnesium OTC for muscle spasms, lidocaine patches and naproxen with partial relief. Denies any recent cough, cold, infection, fever, any significant changes in her medical history, medications or recent hospitalizations. Past Procedures: 11/06/23: Repeat Diagnostic Bilateral L3-L4 DR L5 MBB-100% pain relief for 6 hours 09/25/23: Diagnostic Bilateral L3-L4 DR L5 MBB-90% pain relief for 12 hours 07/20/23: Left L2-L3 TFESI-minimal pain relief for low back pain, denies any radicular 03/20/23: Right Diagnostic SIJ injection- 80% pain relief for 6 hours 12/21/22: Interlaminar L2-L3 NELIDA- 100% radicular symptoms relief but not lower back pain PRIOR: Patient is a pleasant 57 years old male presents today for initial evaluation for low back pain. This is a work related injury, DOI 08/18/22 patient states occurred while he was working in [employer] for many hours, causing him bending and pulling low back injury. Patient was seen at [facility] and completed 2.5 months of physical therapy at [facility] with 85% symptom improvement with PT, HEP and while not working. His back pain is axial and also radiates to right side of his lower back and right buttock, radiating down into anterior aspect right thigh and lateral hip down into the knee, but not below the knee. Patient denies any groin pain, numbness, tingling or leg pain. Denies any bladder or bowel incontinence or saddle anesthesia. Pain is worst in the mornings with intensity rated at 10/10 and least severe during the day with intensity at 4/10. Patient reports pain affects his daily activities, functioning, sleep, mood, social activities and quality of life. Lumbar spine imaging, including most recent MRI was reviewed with patient and is noted below. Location Chronic low back pain since 08/18/22 Duration Since 08/18/22 Characteristics of symptom or complaint Aching, stabbing, sharp Aggravating or associated factors Jogging, prolonged standing, sitting, or walking Relieving factors Cyclobenzaprine, Ibuprofen, ice/heat therapy, changing positions Treatment PT at [facility] for 10 weeks, 85% improvement PFSH Medical History Back pain Hypertension Surgical History S/P right rotator cuff repair Social History Patient Tobacco Use Status: Never used Tobacco Physical Exam Vital Signs: Last Vital Signs Pulse 76 01/01/24 08:58 Resp 18 01/01/24 08:58 BP 132/76 01/01/24 08:58 Pulse Ox 98 01/01/24 08:58 Oxygen Delivery Method Room Air 01/01/24 08:58 BMI result Body Mass Index 29.2 Assessment & Plan Assessment & Plan (1) Lumbar spondylosis: Code(s): M47.816 - Spondylosis without myelopathy or radiculopathy, lumbar region Category: Medical Plan: Radiofrequency ablation medial branch nerves L3,L4 dorsal ramus L5 bilateral.? ? ?Informed consent was explained to the patient. All questions were explained and? answered.? The patient was taken inside the operating room where he was positioned prone on the operating table. Time-out was performed delineating correct site, side, the nature of the procedure, patient's allergy, . All operating room staff was participating in OR time-out procedure. ? ? The lower back was prepped with ChloraPrep and draped with sterile towels.? C-arm was brought over the operating field and sq picture of L4-, L5 vertebra and S1 AREA were delineated on the screen.? Point of interest were delineated as confluence of superior articular process of L4 and L5 vertebra bilaterally with corresponding transverse processes as well as confluence of the sacral alae bilaterally with superior articular process of S1.? The projection of the point of interest to the skin were injected with the small amount of local anesthetic lidocaine 2% 1-1.5 cc.? After that 18 gauge 100 mm radiofrequency cannulas e was driven sequentially to the points of interest in tunnel vision fashion 1st on the right and then on the left.. After needles gently contacted the bone at the point of interests lateral view was obtained and demonstrated no needle tip positioned closely to the foramina. Motor stimulation was performed and patient reported no motor stimulation in the lower extremity muscles. After that the small amount of local anesthetic mixture of lidocaine 2% and ropivacaine 0.5% one-to-one were injected into inch needle , the nitinol probes were inserted again into each cannula, we waited for 90 seconds and then energy application was applied 1st on the right and then on the left needles positioned. The patient tolerated the procedure fairly well the needles were removed sterile Band-Aids were applied. The patient went to recovery room where he recovered uneventfully. (2) Sacroiliitis: Code(s): M46.1 - Sacroiliitis, not elsewhere classified Category: Medical (3) Lumbar degenerative disc disease: Code(s): M51.36 - Other intervertebral disc degeneration, lumbar region Category: Medical (4) Muscle spasm of back: Code(s): M62.830 - Muscle spasm of back Category: Medical Plan Patient is status post repeat diagnostic lumbar medial branch blocks with excellent results, providing him complete pain relief for 6 hours, with improved functioning, ROM and mobility. He would like to proceed with lumbar medial branch RFA as next steps for a longer term pain relief. Schedule Bilateral L3-L4 DR L5 Medial Branch RFA with local, oral Ativan and fluoroscopy. We also reviewed Sprint peripheral nerve stimulation trial which patient declined as this is not practical to him at this time. All questions and concerns have been answered and patient agreed with the plan. Follow up after RFA and sooner as needed. Anticoagulation: Patient not on anticoagulant Justification for interventional therapy: ? Patient with average pain > 6/10 ? Patient has exhausted conservative therapy, NSAIDs, physical therapy ? Diagnostic lumbar medial branch blocks #1 90% pain relief for 12 hours, #2 100% pain relief for 6 hours The risks, consequences, alternatives, and benefits of various treatment options were discussed with the patient in great detail, including conservative management, injections and procedures. Orders: Orders FL guidance in treatment room Today M47.816 - Spondylosis without myelopathy or radiculopathy, lumbar region Medications: New lorazepam (Ativan) Take 30 minutes prior to arrival to procedure 1 mg PO ONCE 1 tab 0RF anxiety Coding Level of Care Code Procedure Only Diagnoses Lumbar spondylosis M47.816 Sacroiliitis M46.1 Lumbar degenerative disc disease M51.36 Muscle spasm of back M62.830
[2024-01-01 08:58] VITALS: BP 132/76; PULSE 76; RESP 18; O2SAT 98
== END 2024-01-01 08:43 | disposition home or self-care (01) ==
LOC: HO.PMCPRC 07:25
PROVIDERS: PCP Internal Medicine; Visit Provider Anesthesiology
DX: M47.816 Spondylosis without myelopathy or radiculopathy, lumbar region (principal)
CPT/HCPCS: 64635; 64636

== ENCOUNTER 2024-01-29 09:02 | Outpatient (AMB) | payer OTHER, SELFPAY ==
--- NOTE | 2024-01-29 09:04 | A.OFFVIS_ITS ---
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 Riggs on 01/01/24. Patient reports over 90% ongoing pain relief since procedure with improvement in his functioning, mobility and sleep. Patient reports he has returned to work. Denies any radicular symptoms today. Denies any recent cough, cold, infection, fever, any significant changes in her medical history, medications or recent hospitalizations. Past Procedures: 11/06/23: Repeat Diagnostic Bilateral L3-L4 DR L5 MBB-100% pain relief for 6 hours 09/25/23: Diagnostic Bilateral L3-L4 DR L5 MBB-90% pain relief for 12 hours 07/20/23: Left L2-L3 TFESI-minimal pain relief for low back pain, denies any radicular pain relief 03/20/23: Right Diagnostic SIJ injection- 80% pain relief for 6 hours 12/21/22: Interlaminar L2-L3 NELIDA- 100% radicular symptoms relief but not lower back pain PRIOR: Patient is a pleasant 57 years old male presents today for initial evaluation for low back pain. This is a work related injury, DOI 08/18/22 patient states occurred while he was working in [employer] for many hours, causing him bending and pulling low back injury. Patient was seen at [facility] and completed 2.5 months of physical therapy at [facility] with 85% symptom improvement with PT, HEP and while not working. His back pain is axial and also radiates to right side of his lower back and right buttock, radiating down into anterior aspect right thigh and lateral hip down into the knee, but not below the knee. Patient denies any groin pain, numbness, tingling or leg pain. Denies any bladder or bowel incontinence or saddle anesthesia. Pain is worst in the mornings with intensity rated at 10/10 and least severe during the day with intensity at 4/10. Patient reports pain affects his daily activities, functioning, sleep, mood, social activities and quality of life. Lumbar spine imaging, including most recent MRI was reviewed with patient and is noted below. Location Chronic low back pain since 08/18/22 Duration Since 08/18/22 Characteristics of symptom or complaint Aching, stabbing, sharp Aggravating or associated factors Jogging, prolonged standing, sitting, or walking Relieving factors Cyclobenzaprine, Ibuprofen, ice/heat therapy, changing positions Treatment PT at [facility] for 10 weeks, 85% improvement [facility] Medical History Back pain Hypertension Surgical History S/P right rotator cuff repair Social History Patient Tobacco Use Status: Never used Tobacco Review of Systems Const All systems reviewed & are unremarkable except as noted in HPI and below Physical Exam Vital Signs: Last Vital Signs Pulse 65 01/29/24 09:07 BP 135/89 01/29/24 09:07 Pulse Ox 99 01/29/24 09:07 Oxygen Delivery Method Room Air 01/29/24 09:07 BMI result Body Mass Index 27.1 General: Appears afebrile. Alert and oriented. Mood and affect appropriate. Follows and participates in conversation appropriately. Respiratory effort is unlabored. No cough. Able to transition from sit to stand unassisted. Back/Spine/Pelvis Cervical Spine: cervical ROM normal and No Cervical spine tenderness Thoracic/Lumbar Spine: thoracic and lumbar spine normal to inspection, thoraco- lumbar ROM normal, Lasegue's sign negative, straight leg raise negative bilaterally, No paraspinal muscle tenderness, No thoracic spinal tenderness and No lumbar spinal tenderness Results Reviewed Results Reviewed: MR LUMBAR SPINE WITHOUT CONTRAST 10/19/22 CLINICAL INFORMATION: Left lumbar strain/pain. COMPARISON: Lumbar spine radiographs 10/06/2022. FINDINGS: There are 5 nonrib-bearing lumbar-type vertebral bodies. There is grade 1 retrolisthesis of L4 on L5. There is bone marrow edema involving the severely degenerative left L2 and L3 facets that is most likely degenerative/inflammatory. There is no additional bone marrow edema. There are no acute fractures. Vertebral body heights overall maintained. There is disc desiccation at the L2-L3 and L4-L5 levels. Conus terminates at the L1-L2 level. Partially imaged simple left renal cysts for which no further imaging follow-up is warranted. L1-L2: Posterior disc contour is normal. No central canal stenosis and no foraminal stenosis. L2-L3: There is a left lateral disc protrusion that results in mild to moderate left-sided foraminal stenosis and probable mass effect on the extraforaminal left L2 nerve root. Background annular disc bulge as well as advanced left and mild right facet arthropathy. No central canal stenosis and no right foraminal stenosis. L3-L4: Small diffuse annular disc bulge and mild bilateral facet arthropathy. There is no central canal stenosis. There is mild foraminal encroachment bilaterally. L4-L5: There is a diffuse annular disc bulge and there is moderate bilateral facet arthropathy and ligamentum flavum thickening. Findings in concert result in mild central canal stenosis and mild to moderate bilateral foraminal encroachment. L5-S1: There is a diffuse annular disc bulge and there is moderate bilateral facet arthropathy. There is no central canal stenosis and there is no foraminal stenosis. IMPRESSION: * At L2-L3, there is a left lateral disc protrusion that results in mild to moderate left-sided foraminal stenosis and probable mass effect on the extraforaminal left L2 nerve root. There is bone marrow edema involving the severely degenerative left L2 and L3 facets that is most likely degenerative/inflammatory. Advanced left-sided facet arthropathy at L2-L3. * At L4-L5, multifactorial degenerative changes result in mild central canal stenosis and mild to moderate bilateral foraminal stenosis. XR LUMBOSACRAL SPINE 06/04/23 CLINICAL INFORMATION: Lumbar spondylosis, without myelopathy or radiculopathy. COMPARISON: Radiographs dated 10/06/2022. TECHNIQUE: AP and lateral views of the lumbar spine and lateral view of the lumbosacral junction. FINDINGS: Vertebral body heights and alignment are normal. The lower thoracic and lumbar disc spaces are well-maintained. No acute fracture or spondylolisthesis is seen. The posterior elements are intact. There is multi-level mild to moderate thoracolumbar spondylosis, most pronounced at L4-L5. The paravertebral soft tissues are unremarkable. IMPRESSION: 1. No acute fracture or spondylolisthesis is seen. 2. The lower thoracic and lumbar disc spaces are well-maintained. 3. There is multi-level mild to moderate thoracolumbar spondylosis, most pronounced at L4-L5. XR SACROILIAC JOINTS 06/04/23 FINDINGS: Bones and soft tissues are normal. No fracture. Alignment is anatomic. Sacroiliac joint spaces are well-maintained without erosions or surrounding sclerosis. IMPRESSION: Normal sacroiliac joints. Assessment & Plan Assessment & Plan (1) Lumbar spondylosis: Code(s): M47.816 - Spondylosis without myelopathy or radiculopathy, lumbar region Category: Medical (2) Lumbar degenerative disc disease: Code(s): M51.36 - Other intervertebral disc degeneration, lumbar region Category: Medical Plan Patient is status post lumbar medial branch RFA with great results, providing him over 90% pain relief for axial low back pain, with improved functioning, ROM and mobility. Patient denies any untoward effects s/p RFA procedure. He has returned to work and his normal daily activities. Patient will continue to monitor his pain and notify when his symptoms return to baseline. Discussed longevity of RFA pain relief with initial and subsequent RFA. Patient encouraged to continue daily physical activity, home exercise program to regain maximum strength and flexibility, adequate hydration and good posture. All questions and concerns have been answered and patient agreed with the plan. Follow up as needed. Coding Level of Care Code Est Pt Level 3 (25684) Diagnoses Lumbar spondylosis M47.816 Lumbar degenerative disc disease M51.36
[2024-01-29 09:07] VITALS: BP 135/89; PULSE 65; O2SAT 99; BMI 27.1
== END 2024-01-29 09:15 | disposition home or self-care (01) ==
PROVIDERS: PCP Internal Medicine; Visit Provider Nurse Practitioner Family
DX: M47.816 Spondylosis without myelopathy or radiculopathy, lumbar region (principal); M51.36 Other intervertebral disc degeneration, lumbar region
CPT/HCPCS: 99213

== ENCOUNTER → 2024-01-29 09:02 | Outpatient (BNVA) | payer OTHER, SELFPAY | PROVIDERS: PCP Internal Medicine; Visit Provider Nurse Practitioner Family | DX: M47.816 Spondylosis without myelopathy or radiculopathy, lumbar region (principal); M51.36 Other intervertebral disc degeneration, lumbar region; Z98.890 Other specified postprocedural states | CPT/HCPCS: 99212 ==

== ENCOUNTER 2024-05-08 13:58 | Outpatient (REF) | payer OTHER, SELFPAY ==
--- NOTE | ~2024-05-08 | XR_ITS ---
EXAMINATION: XR LUMBAR SPINE CLINICAL INFORMATION: Low back pain, patient states pain in back but no known injury. COMPARISON: 06/04/2023. TECHNIQUE: 5 views of the lumbosacral spine. FINDINGS: Mild dextroscoliosis of the lumbar spine. Degenerative changes in the bilateral sacroiliac joints. Straightening of the normal lumbar lordosis. Facet arthritis in the lower lumbar spine. Moderate multilevel lumbar spondylosis, most notable at L4-L5 with moderate loss of disc space height. Minimal grade 1 retrolisthesis of L4 on L5. XR/XR lumbar spine 4V min IMPRESSION: Moderate multilevel lumbar spondylosis, most notable at L4-L5. Electronically signed by: Marcy Valverde MD 05/20/2024 02:14 PM EDT
== END 2024-05-08 13:59 | disposition home or self-care (01) ==
LOC: HO.XRAY 13:58
PROVIDERS: PCP Internal Medicine; Visit Provider Nurse Practitioner Family
DX: M47.816 Spondylosis without myelopathy or radiculopathy, lumbar region (principal); M51.360 Other intervertebral disc degeneration, lumbar region with discogenic back pain only; M51.26 Other intervertebral disc displacement, lumbar region; Z98.890 Other specified postprocedural states
CPT/HCPCS: 72110; 99212

== ENCOUNTER 2024-05-08 13:58 | Outpatient (AMB) | payer OTHER, SELFPAY ==
--- NOTE | 2024-05-08 14:00 | MHC.OFFVIS ---
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 Reports pain started on Sunday while at work and progressed through the day as 05/01. 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 Pain is most severe with standing, walking, bending, flexing forward, twisting and heavy lifting. Pain is midline in the lower spine and does not radiate into his lower extremities. He was treating his symptoms with Naproxen, lidocaine patches, heat, rest and activity modifications. His axial low back pain is minimal. Pain affects his daily activities and functioning, mobility, sleep, work, and quality of life. Denies any recent cough, cold, infection, fever, bladder or bowel dysfunction, saddle anesthesia,or any other significant changes in her medical history, medications or recent hospitalizations. Past Procedures: 01/01/24: Bilateral L3-L4 DR L5 MB RFA-ongoing 90% pain relief 11/06/23: Repeat Diagnostic Bilateral L3-L4 DR L5 MBB-100% pain relief for 6 hours 09/25/23: Diagnostic Bilateral L3-L4 DR L5 MBB-90% pain relief for 12 hours 07/20/23: Left L2-L3 TFESI-minimal pain relief for low back pain, denies any radicular pain relief 03/20/23: Right Diagnostic SIJ injection- 80% pain relief for 6 hours 12/21/22: Interlaminar L2-L3 NELIDA- 100% radicular symptoms relief but not lower back pain PRIOR: Patient is a pleasant 57 years old male presents today for initial evaluation for low back pain. This is a work related injury, DOI 08/18/22 patient states occurred while he was working in [employer] for many hours, causing him bending and pulling low back injury. Patient was seen at [facility] [place] [facility] and completed 2.5 months of physical therapy at [facility] with 85% symptom improvement with PT, HEP and while not working. His back pain is axial and also radiates to right side of his lower back and right buttock, radiating down into anterior aspect right thigh and lateral hip down into the knee, but not below the knee. Patient denies any groin pain, numbness, tingling or leg pain. Denies any bladder or bowel incontinence or saddle anesthesia. Pain is worst in the mornings with intensity rated at 10/10 and least severe during the day with intensity at 4/10. Patient reports pain affects his daily activities, functioning, sleep, mood, social activities and quality of life. Lumbar spine imaging, including most recent MRI was reviewed with patient and is noted below. Location Chronic low back pain since 08/18/22 Duration Since 08/18/22 Characteristics of symptom or complaint Aching, stabbing, sharp Aggravating or associated factors Jogging, prolonged standing, sitting, or walking Relieving factors Cyclobenzaprine, Ibuprofen, ice/heat therapy, changing positions Treatment PT at [facility] for 10 weeks, 85% improvement PFSH Medical History (Updated 05/08/24 @ 14:39 by PREETI New) Lumbar degenerative disc disease Sacroiliitis Lumbar radicular pain Lumbar spondylosis Protrusion of lumbar intervertebral disc Back pain Hypertension Surgical History (Updated 05/08/24 @ 14:39 by PREETI New) History of radiofrequency ablation (RFA) of nerve of lumbar spine S/P right rotator cuff repair Social History Patient Tobacco Use Status: Never used Tobacco Review of Systems Const All systems reviewed & are unremarkable except as noted in HPI and below Physical Exam Vital Signs: Last Vital Signs Pulse 81 05/08/24 14:05 BP 131/80 05/08/24 14:05 Pulse Ox 99 05/08/24 14:05 Oxygen Delivery Method Room Air 05/08/24 14:05 BMI result Body Mass Index 28.5 General: Appears afebrile. Alert and oriented. Mood and affect appropriate. Follows and participates in conversation appropriately. Respiratory effort is unlabored. No cough. Able to transition from sit to stand unassisted. General: Yes no CVA tenderness Back/Spine/Pelvis Other: Limited lumbar ROM due to pain. Antalgic gait. No limping. Lumbar flexion and bending reproduces moderate-severe pain, lumbar extension reproduces mild pain. Demonstrates 5/5 left and 4/5 right strength of quadriceps bilaterally as well as flexion/dorsiflexion of bilateral feet against resistance. 2+ pedal pulses bilaterally. Seated and supine straight leg rise with dorsiflexion at maximum rise reproduces radiating pain into anterior aspect right thigh down into the knee and lateral right leg +1 patellar and achilles reflexes bilaterally. Facet loading test positive bilaterally. Aidan sign is positive bilaterally, Jeanmarie?s test is positive bilaterally. No groin pain with I/E hip rotations. Valsalva maneuver negative. Back: no CVA tenderness Cervical Spine: cervical ROM normal, cervical muscular tenderness and No Cervical spine tenderness Thoracic/Lumbar Spine: thoracic and lumbar spine normal to inspection, thoraco-lumbar ROM normal, Lasegue's sign negative, straight leg raise negative bilaterally, pain with thoraco-lumbar ROM, paraspinal muscle tenderness, thoraco-lumbar ROM limited, No thoracic spinal tenderness and lumbar spinal tenderness at L4 and at L5 Pelvis: no buttock tenderness and no sciatic notch tenderness Sacroiliac joints: bilaterally tender to palpation Results Reviewed Results Reviewed: MR LUMBAR SPINE WITHOUT CONTRAST 10/19/22 CLINICAL INFORMATION: Left lumbar strain/pain. COMPARISON: Lumbar spine radiographs 10/06/2022. FINDINGS: There are 5 nonrib-bearing lumbar-type vertebral bodies. There is grade 1 retrolisthesis of L4 on L5. There is bone marrow edema involving the severely degenerative left L2 and L3 facets that is most likely degenerative/inflammatory. There is no additional bone marrow edema. There are no acute fractures. Vertebral body heights overall maintained. There is disc desiccation at the L2-L3 and L4-L5 levels. Conus terminates at the L1-L2 level. Partially imaged simple left renal cysts for which no further imaging follow-up is warranted. L1-L2: Posterior disc contour is normal. No central canal stenosis and no foraminal stenosis. L2-L3: There is a left lateral disc protrusion that results in mild to moderate left-sided foraminal stenosis and probable mass effect on the extraforaminal left L2 nerve root. Background annular disc bulge as well as advanced left and mild right facet arthropathy. No central canal stenosis and no right foraminal stenosis. L3-L4: Small diffuse annular disc bulge and mild bilateral facet arthropathy. There is no central canal stenosis. There is mild foraminal encroachment bilaterally. L4-L5: There is a diffuse annular disc bulge and there is moderate bilateral facet arthropathy and ligamentum flavum thickening. Findings in concert result in mild central canal stenosis and mild to moderate bilateral foraminal encroachment. L5-S1: There is a diffuse annular disc bulge and there is moderate bilateral facet arthropathy. There is no central canal stenosis and there is no foraminal stenosis. IMPRESSION: * At L2-L3, there is a left lateral disc protrusion that results in mild to moderate left-sided foraminal stenosis and probable mass effect on the extraforaminal left L2 nerve root. There is bone marrow edema involving the severely degenerative left L2 and L3 facets that is most likely degenerative/inflammatory. Advanced left-sided facet arthropathy at L2-L3. * At L4-L5, multifactorial degenerative changes result in mild central canal stenosis and mild to moderate bilateral foraminal stenosis. XR LUMBOSACRAL SPINE 06/04/23 CLINICAL INFORMATION: Lumbar spondylosis, without myelopathy or radiculopathy. COMPARISON: Radiographs dated 10/06/2022. TECHNIQUE: AP and lateral views of the lumbar spine and lateral view of the lumbosacral junction. FINDINGS: Vertebral body heights and alignment are normal. The lower thoracic and lumbar disc spaces are well-maintained. No acute fracture or spondylolisthesis is seen. The posterior elements are intact. There is multi-level mild to moderate thoracolumbar spondylosis, most pronounced at L4-L5. The paravertebral soft tissues are unremarkable. IMPRESSION: 1. No acute fracture or spondylolisthesis is seen. 2. The lower thoracic and lumbar disc spaces are well-maintained. 3. There is multi-level mild to moderate thoracolumbar spondylosis, most pronounced at L4-L5. XR SACROILIAC JOINTS 06/04/23 FINDINGS: Bones and soft tissues are normal. No fracture. Alignment is anatomic. Sacroiliac joint spaces are well-maintained without erosions or surrounding sclerosis. IMPRESSION: Normal sacroiliac joints. Assessment & Plan Assessment & Plan (1) Lumbar spondylosis: Code(s): M47.816 - Spondylosis without myelopathy or radiculopathy, lumbar region Category: Medical (2) Lumbar degenerative disc disease: Code(s): M51.36 - Other intervertebral disc degeneration, lumbar region Category: Medical (3) Protrusion of lumbar intervertebral disc: Code(s): M51.26 - Other intervertebral disc displacement, lumbar region Category: Medical (4) Discogenic lumbar pain: Code(s): M54.59 - Other low back pain Category: Medical (5) History of radiofrequency ablation (RFA) of nerve of lumbar spine: Code(s): Z98.890 - Other specified postprocedural states Category: Surgical Plan Lumbar spine imaging to assess for instability, degree of degenerative changes, any subluxation, listhesis, compression fractures or pars defects. Scripts provided for Medrol Odin and short script for oxycodone for acute discogenic low back pain. Narcan provided with opioid. Side effects and precautions were discussed with patient. Patient will avoid heavy lifting, excessive twisting and bending. Patient is aware to call if pain worsens or if he develops any red flag symptoms to seek emergency care. Patient denies any cauda equina syndrome symptoms at this time. All questions and concerns have been answered and patient agreed with the treatment plan. Follow-up for MRI results and sooner as needed. Orders: Orders XR lumbar spine 4V min Today M47.816 - Spondylosis without myelopathy or radiculopathy, lumbar region, M51.26 - Other intervertebral disc displacement, lumbar region, M51.36 - Other intervertebral disc degeneration, lumbar region, M54.59 - Other low back pain Medications: New oxycodone Partial Fill upon patient request. 5 mg PO BID 10 days PRN 14 tabs 0RF pain (scale score 7-10) M47.816 - Spondylosis without myelopathy or radiculopathy, lumbar region, M51.26 - Other intervertebral disc displacement, lumbar region, M51.36 - Other intervertebral disc degeneration, lumbar region, M54.59 - Other low back pain methylprednisolone (Medrol (Odin)) PO PER PKG DIR 21 ea 0RF pain M47.816 - Spondylosis without myelopathy or radiculopathy, lumbar region, M51.26 - Other intervertebral disc displacement, lumbar region, M51.36 - Other intervertebral disc degeneration, lumbar region, M54.59 - Other low back pain naloxone 4 mg/actuation (Narcan) spray 1 dose into ONE nostril; alternate nostrils w each dose until help arrives 4 mg intranasal Q2M PRN 2 ea 0RF opioid overdose oxycodone Partial Fill upon patient request. 5 mg PO BID 10 days PRN 20 tabs 0RF pain (scale score 7-10) M47.816 - Spondylosis without myelopathy or radiculopathy, lumbar region, M51.26 - Other intervertebral disc displacement, lumbar region, M51.36 - Other intervertebral disc degeneration, lumbar region, M54.59 - Other low back pain Coding Level of Care Code Est Pt Level 4 (26992) Complex EM visit Add On [id number] Diagnoses Lumbar spondylosis M47.816 Lumbar degenerative disc disease M51.36 Protrusion of lumbar intervertebral disc M51.26 Discogenic lumbar pain M54.59 History of radiofrequency ablation (RFA) of nerve of lumbar spine Z98.890
[2024-05-08 14:05] VITALS: BP 131/80; PULSE 81; O2SAT 99; BMI 28.5
== END 2024-05-08 14:29 | disposition home or self-care (01) ==
PROVIDERS: PCP Internal Medicine; Visit Provider Nurse Practitioner Family
DX: M47.816 Spondylosis without myelopathy or radiculopathy, lumbar region (principal); M51.369 Other intervertebral disc degeneration, lumbar region without mention of lumbar back pain or lower extremity pain; M51.26 Other intervertebral disc displacement, lumbar region; M54.59 Other low back pain; Z98.890 Other specified postprocedural states
CPT/HCPCS: 99214; G2211

== ENCOUNTER 2024-06-06 15:03 | Outpatient (AMB) | payer OTHER, SELFPAY ==
--- NOTE | 2024-06-06 15:05 | A.OFFVIS_ITS ---
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 Low back pain is minimal today, rated at 10. He continues to receive good pain relief s/p lumbar spine RFA in December 2023. Xray findings showed moderate multilevel lumbar spondylosis, most notable at L4-L5. Patient reports minimal relief with low dose gabapentin at bedtime without any side effects. Denies any recent cough, cold, infection, fever, bladder or bowel dysfunction, saddle anesthesia,or any other significant changes in her medical history, medications or recent hospitalizations. Past Procedures: 01/01/24: Bilateral L3-L4 DR L5 MB RFA-ongoing 90% pain relief 11/06/23: Repeat Diagnostic Bilateral L3-L4 DR L5 MBB-100% pain relief for 6 hours 09/25/23: Diagnostic Bilateral L3-L4 DR L5 MBB-90% pain relief for 12 hours 07/20/23: Left L2-L3 TFESI-minimal pain relief for low back pain, denies any radicular pain relief 03/20/23: Right Diagnostic SIJ injection- 80% pain relief for 6 hours 12/21/22: Interlaminar L2-L3 NELIDA- 100% radicular symptoms relief but not lower back pain PRIOR: Patient is a pleasant 57 years old male presents today for initial evaluation for low back pain. This is a work related injury, DOI 08/18/22 patient states occurred while he was working in [employer] for many hours, causing him bending and pulling low back injury. Patient was seen at [facility] and completed 2.5 months of physical therapy at [facility] with 85% symptom improvement with PT, HEP and while not working. His back pain is axial and also radiates to right side of his lower back and right buttock, radiating down into anterior aspect right thigh and lateral hip down into the knee, but not below the knee. Patient denies any groin pain, numbness, tingling or leg pain. Denies any bladder or bowel incontinence or saddle anesthesia. Pain is worst in the mornings with intensity rated at 10/10 and least severe during the day with intensity at 4/10. Patient reports pain affects his daily activities, functioning, sleep, mood, social activities and quality of life. Lumbar spine imaging, including most recent MRI was reviewed with patient and is noted below. Location Chronic low back pain since 08/18/22 Duration Since 08/18/22 Characteristics of symptom or complaint Aching, stabbing, sharp Aggravating or associated factors Jogging, prolonged standing, sitting, or walking Relieving factors Cyclobenzaprine, Ibuprofen, ice/heat therapy, changing positions Treatment PT at [facility] for 10 weeks, 85% improvement [facility] Medical History (Updated 05/08/24 @ 14:39 by PREETI New) Lumbar degenerative disc disease Sacroiliitis Lumbar radicular pain Lumbar spondylosis Protrusion of lumbar intervertebral disc Back pain Hypertension Surgical History (Updated 05/08/24 @ 14:39 by PREETI New) History of radiofrequency ablation (RFA) of nerve of lumbar spine S/P right rotator cuff repair Social History Patient Tobacco Use Status: Never used Tobacco Review of Systems Const All systems reviewed & are unremarkable except as noted in HPI and below Physical Exam Vital Signs: Last Vital Signs Pulse 96 06/06/24 15:08 BP 134/78 06/06/24 15:08 Pulse Ox 97 06/06/24 15:08 Oxygen Delivery Method Room Air 06/06/24 15:08 BMI result Body Mass Index 28.5 General: Appears afebrile. No acute distress. Alert and oriented. Mood and affect appropriate. Follows and participates in conversation appropriately. Respiratory effort is unlabored. No cough. Able to transition from sit to stand unassisted. General: Yes no CVA tenderness Back/Spine/Pelvis Other: Limited lumbar ROM due to pain. Non-antalgic gait, no limping. Lumbar flexion and extension reproduces mild pain. Demonstrates 5/5 left and 4/5 right strength of quadriceps bilaterally as well as flexion/dorsiflexion of bilateral feet against resistance. 2+ pedal pulses bilaterally. +1 patellar and achilles reflexes bilaterally. Facet loading test positive bilaterally. Aidan sign is positive bilaterally, Jeanmarie?s test is positive bilaterally. No groin pain with I/E hip rotations. Valsalva maneuver negative. Back: no CVA tenderness Cervical Spine: cervical ROM normal, cervical muscular tenderness and No Cervical spine tenderness Thoracic/Lumbar Spine: thoracic and lumbar spine normal to inspection, Lasegue's sign negative, straight leg raise negative bilaterally, paraspinal muscle tenderness, thoraco-lumbar ROM limited, No thoracic spinal tenderness and lumbar spinal tenderness at L4 and at L5 Sacroiliac joints: bilaterally tender to palpation Results Reviewed Results Reviewed: XR LUMBAR SPINE 05/08/24 CLINICAL INFORMATION: Low back pain, patient states pain in back but no known injury. COMPARISON: 06/04/2023. FINDINGS: Mild dextroscoliosis of the lumbar spine. Degenerative changes in the bilateral sacroiliac joints. Straightening of the normal lumbar lordosis. Facet arthritis in the lower lumbar spine. Moderate multilevel lumbar spondylosis, most notable at L4-L5 with moderate loss of disc space height. Minimal grade 1 retrolisthesis of L4 on L5. IMPRESSION: Moderate multilevel lumbar spondylosis, most notable at L4-L5. MR LUMBAR SPINE WITHOUT CONTRAST 10/19/22 CLINICAL INFORMATION: Left lumbar strain/pain. COMPARISON: Lumbar spine radiographs 10/06/2022. FINDINGS: There are 5 nonrib-bearing lumbar-type vertebral bodies. There is grade 1 retrolisthesis of L4 on L5. There is bone marrow edema involving the severely degenerative left L2 and L3 facets that is most likely degenerative/inflammatory. There is no additional bone marrow edema. There are no acute fractures. Vertebral body heights overall maintained. There is disc desiccation at the L2-L3 and L4-L5 levels. Conus terminates at the L1-L2 level. Partially imaged simple left renal cysts for which no further imaging follow-up is warranted. L1-L2: Posterior disc contour is normal. No central canal stenosis and no foraminal stenosis. L2-L3: There is a left lateral disc protrusion that results in mild to moderate left-sided foraminal stenosis and probable mass effect on the extraforaminal left L2 nerve root. Background annular disc bulge as well as advanced left and mild right facet arthropathy. No central canal stenosis and no right foraminal stenosis. L3-L4: Small diffuse annular disc bulge and mild bilateral facet arthropathy. There is no central canal stenosis. There is mild foraminal encroachment bilaterally. L4-L5: There is a diffuse annular disc bulge and there is moderate bilateral facet arthropathy and ligamentum flavum thickening. Findings in concert result in mild central canal stenosis and mild to moderate bilateral foraminal encroachment. L5-S1: There is a diffuse annular disc bulge and there is moderate bilateral facet arthropathy. There is no central canal stenosis and there is no foraminal stenosis. IMPRESSION: * At L2-L3, there is a left lateral disc protrusion that results in mild to moderate left-sided foraminal stenosis and probable mass effect on the extraforaminal left L2 nerve root. There is bone marrow edema involving the severely degenerative left L2 and L3 facets that is most likely degenerative/inflammatory. Advanced left-sided facet arthropathy at L2-L3. * At L4-L5, multifactorial degenerative changes result in mild central canal stenosis and mild to moderate bilateral foraminal stenosis. XR LUMBOSACRAL SPINE 06/04/23 CLINICAL INFORMATION: Lumbar spondylosis, without myelopathy or radiculopathy. COMPARISON: Radiographs dated 10/06/2022. TECHNIQUE: AP and lateral views of the lumbar spine and lateral view of the lumbosacral junction. FINDINGS: Vertebral body heights and alignment are normal. The lower thoracic and lumbar disc spaces are well-maintained. No acute fracture or spondylolisthesis is seen. The posterior elements are intact. There is multi-level mild to moderate thoracolumbar spondylosis, most pronounced at L4-L5. The paravertebral soft tissues are unremarkable. IMPRESSION: 1. No acute fracture or spondylolisthesis is seen. 2. The lower thoracic and lumbar disc spaces are well-maintained. 3. There is multi-level mild to moderate thoracolumbar spondylosis, most pronounced at L4-L5. XR SACROILIAC JOINTS 06/04/23 FINDINGS: Bones and soft tissues are normal. No fracture. Alignment is anatomic. Sacroiliac joint spaces are well-maintained without erosions or surrounding sclerosis. IMPRESSION: Normal sacroiliac joints. Assessment & Plan Assessment & Plan (1) Lumbar spondylosis: Code(s): M47.816 - Spondylosis without myelopathy or radiculopathy, lumbar region Category: Medical (2) Lumbar radicular pain: Code(s): M54.16 - Radiculopathy, lumbar region Category: Medical (3) Lumbar degenerative disc disease: Code(s): M51.36 - Other intervertebral disc degeneration, lumbar region Category: Medical Plan Lumbar spine imaging report was discussed with patient today. He continues to receive good benefit for axial low back pain status post lumbar inch RFA in December 2023. Script sent for increased dose of gabapentin 300 mg p.o. b.i.d.. Continue to monitor for any side effects. All questions and concerns have been answered and patient agreed with the plan. Follow-up as needed. Medications: Changed From gabapentin 200 mg (2 x 100 mg) PO BEDTIME 30 days 60 caps 3RF M47.816 - Spondylosis without myelopathy or radiculopathy, lumbar region, M51.36 - Other intervertebral disc degeneration, lumbar region, M54.16 - Radiculopathy, lumbar region To gabapentin 300 mg PO BID 30 days 60 caps 0RF pain M47.816 - Spondylosis without myelopathy or radiculopathy, lumbar region, M51.36 - Other intervertebral disc degeneration, lumbar region, M54.16 - Radiculopathy, lumbar region Coding Level of Care Code Est Pt Level 3 (16662) Complex EM visit Add On G2211 Diagnoses Lumbar spondylosis M47.816 Lumbar radicular pain M54.16 Lumbar degenerative disc disease M51.36
[2024-06-06 15:08] VITALS: BP 134/78; PULSE 96; O2SAT 97; BMI 28.5
== END 2024-06-06 15:23 | disposition home or self-care (01) ==
PROVIDERS: PCP Internal Medicine; Visit Provider Nurse Practitioner Family
DX: M47.816 Spondylosis without myelopathy or radiculopathy, lumbar region (principal); M54.16 Radiculopathy, lumbar region; M51.369 Other intervertebral disc degeneration, lumbar region without mention of lumbar back pain or lower extremity pain
CPT/HCPCS: 99213; G2211

== ENCOUNTER → 2024-06-06 15:03 | Outpatient (BNVA) | payer OTHER, SELFPAY | PROVIDERS: PCP Internal Medicine; Visit Provider Nurse Practitioner Family | DX: M47.26 Other spondylosis with radiculopathy, lumbar region (principal); M51.369 Other intervertebral disc degeneration, lumbar region without mention of lumbar back pain or lower extremity pain | CPT/HCPCS: 99212 ==